=== PATIENT | male | born 1995 | race Caucasian/White ===

== ENCOUNTER 2019-09-12 11:40 | Emergency (ER) | payer OTHER, SELFPAY ==
--- NOTE | ~2019-09-12 | XR_ITS ---
XR toe 1st RT min 2V DATE: 09/12/2019 13:07 INDICATION: Injury. Possible metallic foreign body TECHNIQUE: 4 views COMPARISON: None FINDINGS: No fracture or dislocation, periosteal reaction or bone destruction, subcutaneous emphysema or radiopaque soft tissue foreign body is evident. The joint spaces are preserved. IMPRESSION: Negative Reviewed, dictated and finalized at location A. IMPRESSION: Negative
[2019-09-12 11:46] VITALS: BP 137/64; PULSE 92; RESP 20; TEMP 37.2; O2SAT 100
--- NOTE | 2019-09-12 12:41 | ED.LOWEXIN ---
HPI - Extremity Injury (Lower) General Chief Complaint: Extremity Injury, Lower <Mariah Bañuelos PA-C - Last Filed: 09/12/19 13:22> Stated Complaint: lt great toe injury/pain <Mariah Bañuelos PA-C - Last Filed: 09/12/19 13:22> Time Seen by Provider: 09/12/19 12:25 <Mariah Bañuelos PA-C - Last Filed: 09/12/19 13:22> Source: patient <ROBBIE Crane Last Filed: 09/12/19 13:22> Mode of arrival: ambulatory <ROBBIE Crane Last Filed: 09/12/19 13:22> Limitations: no limitations <Mariah Bañuelos PA-C - Last Filed: 09/12/19 13:22> History of Present Illness HPI Narrative: This is a 24 year old male that presents to the ER for right great toe injury sustained 3 days ago. Reports he was outside and he felt a piece of fence go under his right great toenail. Reports since he has had swelling and pain in the area. Also reports redness. Denies fever or drainage. <ROBBIE Crane Last Filed: 09/12/19 13:22> Related Data Home Medications: Home Medications Medication Instructions Recorded Confirmed omeprazole 40 mg PO DAILY 01/31/19 01/31/19 <Mariah Bañuelos PA-C - Last Filed: 09/12/19 13:22> Allergies/Adverse Reactions: Allergies Allergy/AdvReac Type Severity Reaction Status Date / Time No Known Allergies Allergy Unverified 09/12/19 12:47 <ROBBIE Crane Last Filed: 09/12/19 13:22> Review of Systems Review of Systems: Narrative: CONSTITUTIONAL: Denies fever SKIN: Reports redness <ROBBIE Crane Last Filed: 09/12/19 13:22> All systems reviewed & are unremarkable except as noted in HPI and below <ROBBIE Crane Last Filed: 09/12/19 13:22> PMFSH Past Medical History Medical History: Medical History (Updated 09/12/19 @ 13:19 by Mariah Bañuelos PA-C) History of anxiety <Mariah Bañuelos PA-C - Last Filed: 09/12/19 13:22> Surgical History Surgical History: Surgical History (Updated 01/31/19 @ 19:25 by Dana Soni) No history of previous surgery <Mariah Bañuelos PA-C - Last Filed: 09/12/19 13:22> Social History Social History: Social History (Updated 01/31/19 @ 19:26 by Dana Soni) Smoking status: Unknown if ever smoked <Mariah Bañuelos PA-C - Last Filed: 09/12/19 13:22> Exam Narrative: Exam Narrative: GENERAL: Well-appearing, well-nourished, and in no acute distress. HEAD: Normocephalic, atraumatic. EYES: EOMI. EXTREMITIES: Normal range of motion. Mild swelling and redness to the medial side of the nail SKIN: Warm, dry, no rash. NEURO: No focal deficits. Alert and oriented x3. PSYCH: Normal mood and affect <Mariah Bañuelos PA-C - Last Filed: 09/12/19 13:22> Course Vital Signs Vital signs: Vital Signs Temperature 99.0 F 09/12/19 11:46 Pulse Rate 92 09/12/19 11:46 Respiratory Rate 20 09/12/19 11:46 Blood Pressure 137/64 09/12/19 11:46 Pulse Oximetry 100 09/12/19 11:46 Temperature 99.0 F 09/12/19 11:46 Pulse Rate 45 L 09/12/19 14:07 Respiratory Rate 14 09/12/19 14:07 Blood Pressure 120/71 09/12/19 14:07 Pulse Oximetry 100 09/12/19 14:07 <Mariah Bañuelos PA-C - Last Filed: 09/12/19 13:22> Vital Signs Temperature 99.0 F 09/12/19 11:46 Pulse Rate 92 09/12/19 11:46 Respiratory Rate 20 09/12/19 11:46 Blood Pressure 137/64 09/12/19 11:46 Pulse Oximetry 100 09/12/19 11:46 Temperature 99.0 F 09/12/19 11:46 Pulse Rate 45 L 09/12/19 14:07 Respiratory Rate 14 09/12/19 14:07 Blood Pressure 120/71 09/12/19 14:07 Pulse Oximetry 100 09/12/19 14:07 <Elvia Pineda MD - Last Filed: 09/12/19 20:19> MDM - Extremity Injury (Lower) MDM Narrative Medical decision making narrative: Patient presents the emergency department for right great toe injury 3 days ago. Patient was updated on tetanus. He is afebrile and nontoxic-appearing. He has mild redness and swelling around
[2019-09-12] MEDS: KETOROLAC (*BKC) 60 MG/2 ML VIAL IM (12:51)
[2019-09-12] MEDS: TETANUS,DIPHTHERIA,AC PERTUSSIS ADULT (0.5 ML) BOOSTRIX IM (12:54)
[2019-09-12 14:07] VITALS: BP 120/71; PULSE 45; RESP 14; O2SAT 100
== END 2019-09-12 14:09 | disposition home or self-care (01) ==
PROVIDERS: Emergency Provider General Practice; PCP Nurse Practitioner Family
DX: L03.031 Cellulitis of right toe (principal); Z23 Encounter for immunization
CPT/HCPCS: 73660; 90471; 90715; 96372; 99283; J1885

== ENCOUNTER 2020-05-25 19:12 | Inpatient (IN) | payer OTHER, SELFPAY ==
[2020-05-25] VITALS (14 sets, daily range): BP systolic 106–142; BP diastolic 53–80; PULSE 70–84; RESP 4–17; TEMP 36.6; O2SAT 98–100
--- NOTE | ~2020-05-25 | CT_ITS ---
EXAMINATION: CT brain wo con DATE: 05/25/2020 22:36 INDICATION: Head injury. Drug overdose. TECHNIQUE: Computed tomography (CT) of the head was performed without intravenous contrast. The mA wa s adjusted according to patient size. Iterative reconstruction technique was employed. The dose-lengt h product was 605.33 mGy-cm. COMPARISON: Head CT 02/19/2018 FINDINGS: There is no acute ischemic infarct, intracranial hemorrhage, or abnormal mass lesion. The v entricles are normal in size. There is mucosal thickening in the paranasal sinuses. The orbits are no rmal. The mastoid air cells are normal. IMPRESSION: 1. Normal brain. Reviewed, dictated and finalized at location A. TRICAL VARIETY AGENT IMPRESSION: 1. Normal brain.
--- NOTE | ~2020-05-25 | XR_ITS ---
EXAMINATION: XR chest ET placement DATE: 05/25/2020 23:22 INDICATION: Intubation. TECHNIQUE: A single frontal view of the chest was obtained. COMPARISON: Chest CT 11/17/2015 FINDINGS: The chest demonstrates clear lungs without pneumonia, pleural effusion, or pneumothorax. Th e heart size is normal. The endotracheal tube tip is 5.1 cm above the taurus. IMPRESSION: 1. No acute cardiopulmonary disease. Reviewed, dictated and finalized at location A. RVISOR INSTANT POTATO PROCESSING
--- NOTE | ~2020-05-25 | XR_ITS ---
EXAMINATION: XR abdomen NG/feed tube insert DATE: 05/25/2020 23:21 INDICATION: Nasogastric tube placement. TECHNIQUE: A supine view of the abdomen was obtained. COMPARISON: None. FINDINGS: There are no dilated loops of bowel. The nasogastric tube tip is in the stomach. IMPRESSION: 1. Nasogastric tube tip in the stomach. Reviewed, dictated and finalized at location A. TRUCK DRIVER
--- NOTE | ~2020-05-25 | CT_ITS ---
EXAMINATION: CT cervical spine wo con DATE: 05/25/2020 22:36 INDICATION: Neck injury. TECHNIQUE: Computed tomography (CT) of the cervical spine was performed without intravenous contrast. Automated exposure control and iterative reconstruction technique were employed. The dose-length pro duct was 464.73 mGy-cm. COMPARISON: None FINDINGS: There is 4 degrees dextrocurvature of cervical spine. Vertebral body heights and interverte bral disc heights are normal. At C7-T1, there is mild bilateral facet joint osteoarthritis. No neural foraminal stenosis or central canal stenosis. IMPRESSION: 1. No fracture. Reviewed, dictated and finalized at location A. DING TANK TENDER HELPER IMPRESSION: 1. No fracture.
--- NOTE | ~2020-05-25 | XR_ITS ---
EXAMINATION: XR chest 1V portable DATE: 05/27/2020 05:23 INDICATION: Respiratory failure TECHNIQUE: frontal view of the chest was obtained. COMPARISON: Chest radiograph dated 05/25/2020 FINDINGS: Endotracheal tube tip 4.7 cm above the taurus. Nasogastric tube extends below the left hemidiaphragm with distal tip collimated off the study. Lungs are clear with no focal airspace opacities, pulmonary edema, pleural effusion or pneumothorax. The cardiomediastinal silhouette is normal. Visualized bones and soft tissues are unremarkable. IMPRESSION: 1. No acute cardiopulmonary disease. Reviewed, dictated and finalized at location A. CAR MAKE READY WORKER
[2020-05-25] MEDS: NALOXONE HCL INJ 2 MG/2 ML AMP (19:20)
--- NOTE | 2020-05-25 19:22 | ECG_ITS ---
Measurements Intervals [place] Rate: 77 P: 71 MA: 217 QRS: 68 QRSD: 98 T: 54 QT: 367 QTc: 417 Interpretive Statements SINUS RHYTHM WITH FIRST DEGREE AV BLOCK POSSIBLE LEFT ATRIAL ENLARGEMENT INCOMPLETE RIGHT BUNDLE BRANCH BLOCK ABNORMAL ECG Electronically Signed On 05-26-2020 6:50:18 AIRCRAFT LANDING GEAR INSPECTOR by Quan Ward D.O.
[2020-05-25] MEDS: diazePAM INJ (*CRX) 10 MG/2 ML SYRINGE ×2 (19:27→19:33)
[2020-05-25] MEDS: MIDAZOLAM HCL (*CRX) 2 MG/2 ML VIAL 4 MG (19:41)
--- NOTE | 2020-05-25 19:54 | ED.GENADULT ---
HPI - General Adult General Chief complaint: Altered Mental Status Stated complaint: unresp Time Seen by Provider: 05/25/20 19:53 Source: patient and EMS Mode of arrival: EMS Limitations: clinical condition History of Present Illness HPI narrative: Patient is 25 years old white male found on the floor at [facility] bathroom unresponsive. told us that patient had history of heroin abuse. 8 mg of Narcan were given prior to arrival without . Patient currently is unresponsive with loud snoring Related Data Home Medications Medication Instructions Recorded Confirmed omeprazole 40 mg PO DAILY 01/31/19 01/31/19 Allergies Allergy/AdvReac Type Severity Reaction Status Date / Time No Known Allergies Allergy Unverified 09/12/19 12:47 Review of Systems Review of Systems: ROS unobtainable: Yes unobtainable due to medical condition PMFSH Past Medical History Medical History History of anxiety Surgical History Surgical History No history of previous surgery Social History Social History Smoking status: Unknown if ever smoked Exam Narrative: Exam Narrative: General appearance: Well-developed, well-nourished, unresponsive, loud snoring Skin: Diaphoretic, warm Head: Normocephalic, nontraumatic Eyes: Clear conjunctiva ENT: Oropharynx normal Neck: Supple, nontender Chest and respiratory: Airway patent, no respiratory distress, no accessory muscle use Heart: Regular rate/rhythm Abdomen: Soft, nontender, no organomegaly, quiet bowel sounds Vascular: Normal peripheral pulses, normal capillary refill. Neurologic: Unresponsive to painful stimulation Course Course Emergency Course: Stable Patient had another 2 mg of Narcan in the emergency room without any response, patient received 22 mg of Romazicon every 15 seconds up to 1 mg without any response. Few minutes later patient started having seizure-like activity and was combative. 5 mg of Valium were given every 5 minutes x 4. Patient was still agitated and combative. For the safety of the staff and patient 4 mg was given with good results. Currently patient laying down comfortable with normal vital signs. Reevaluation(s) Reevaluation #1: Patient developed apnea at 6 breaths/min, UNresponsive to painful stimulation, orotracheal intubation started. Discussed with Dr. Alaniz Date: 05/25/20 Time: 23:39 Consultations Consultation #1: Dr. Alaniz, accepted admission Date: 05/26/20 Time: 00:03 Vital Signs Vital signs: Vital Signs Temperature 36.6 C 05/25/20 19:14 Pulse Rate 80 05/25/20 19:14 Respiratory Rate 15 05/25/20 19:14 Blood Pressure 142/75 H 05/25/20 19:14 Pulse Oximetry 100 05/25/20 19:14 Temperature 36.6 C 05/25/20 19:14 Pulse Rate 80 05/25/20 19:14 Respiratory Rate 15 05/25/20 19:14 Blood Pressure 142/75 H 05/25/20 19:14 Pulse Oximetry 100 05/25/20 19:14 Procedures Intubation Intubation #1: Intubation Date: 05/25/20 Intubation Time: 23:25 Time out performed: Yes (15 minutes) sedative: none paralytic: Succinylcholine Mg Given: 100 Laryngoscope: fiber optic video scope Assist Device Used: other (None) Tube Size (cm): 7.5 Method of Intubation: orotracheal Number of Attempts: 1 Tube Secured Location: lips Tube Placement Confirmation: visualized tube passing through cords, equal breath sounds bilaterally and no breath sounds over epigastrium Patient Tolerated Procedure: well Intubation Compli
[2020-05-25 20:22] LABS: Basophils Absolute Auto 0.1 K/mm3 (0.0-0.1); Basophils Percent Auto 0.5 % (0.2-1.2); Eosinophils Absolute Auto 0.1 K/mm3 (0-0.3); Eosinophils Percent Auto 1.3 % (0-4.4); Hematocrit 35.3 % (42.0-52.0); Hemoglobin 11.7 g/dL (14.0-18.0); Immature Granulocyte Absolute 0.02 K/mm3 (0.00-0.031); Immature Granulocyte Percent A 0.2 % (0-0.5); Lymphocytes Absolute Auto 3.05 K/mm3 (0.9-3.2); Mean Corpuscular HGB Conc 33.1 g/dl (32-36); Mean Corpuscular Volume 90.5 fl (80-100); Mean Platelet Volume 9.6 fl (7.4-10.4); Monocytes Absolute Auto 0.7 K/mm3 (0.1-0.6); Monocytes Percent Auto 7.4 % (2.6-8.5); Neutrophils Absolute Auto 5.6 K/mm3 (1.3-6.7); Neutrophils Percent Auto 58.6 % (45.5-73.1); Platelet Count Result 214 k/mm3 (150-375); Red Cell Distribution Width 12.3 % (11.5-14.5); White Blood Count 9.5 K/mm3 (4.5-10.0)
[2020-05-25] MEDS: LORazepam INJ (*CRX) 2 MG/ML VIAL (20:25)
[2020-05-25 20:26] LABS: Add Urine Microscopic? YES; Appearance Urine Clear (Clear); Bacteria Urine Trace /hpf; Bilirubin Urine Negative (Negative); Blood Urine 1+ (Negative); Color Urine Straw (Yellow); Glucose Urine UA Negative (Negative); Ketones Urine Negative (Negative); Leukocyte Esterase Ur Negative LEU/UL (Negative); Mucus Urine Rare /lpf; Nitrate Urine Negative (Negative); Protein Urine 2+ mg/dL (Negative); RBC Urine 0-2 /hpf (0-2); Urobilinogen Urine Negative mg/dL (<2.0); WBC Urine 0-3 /hpf
[2020-05-25 20:29] LABS: Alveolar/Arterial O2 Gradient 371.4 mmHg; Base Excess ABG -6.5 mEq/l (+/-2.0); Carboxyhemoglobin 0.3 % THb (0-2.0); Device NON-REBREATHER MASK; Fractional Inspired Oxygen 100 %; Methemoglobin ABG 0.3 %THb (0-1.5); Modified Allen's Test Unable to perform; Oxygen Content ABG 17.8 %vol (16.0-22.0); Oxygen Saturation ABG 99.7 % (95.0-100.0); Oxyhemoglobin 98.3 % THb (90.0-100.0); PCO2 ABG 32.7 mmHg (35.0-45.0); PO2 ABG 308.9 mmHg (80.0-100.0); PO2 FiO2 Ratio Arterial Blood 3.09 %; Reduced Hemoglobin 1.1 %THb (0-5.0); Site Drawn RIGHT RADIAL; Total Hemoglobin 12.3 g/dL (12.0-18.0); pH ABG 7.359 (7.350-7.450)
[2020-05-25 20:33] LABS: Acetaminophen < 10 ug/mL (10-30); Ethanol 54 mg/dL (<10); Salicylate < 1.0 mg/dL (2-20)
[2020-05-25 20:34] LABS: Alanine Aminotransferase 19 U/L (4-50); Albumin Level 4.1 g/dL (3.5-5.1); Alkaline Phosphatase 60 U/L (38-126); Anion Gap 10 mmol/L (8-16); Aspartate Amino Transferase 37 U/L (17-59); Bilirubin,Total 0.7 mg/dL (0.2-1.3); Blood Urea Nitrogen 15 mg/dL (9-20); Calcium 8.5 mg/dL (8.4-10.2); Carbon Dioxide 22 mmol/L (22-30); Chloride 109 mmol/L (98-107); Creatine Kinase 191 U/L (55-170); Estimated CRCL calculation 120 ml/min; Estimated Glomerular Filt Rate > 60; Glucose 119 mg/dL (75-110); Potassium 2.9 mmol/L (3.4-5.0); Sodium 141 mmol/L (137-145)
[2020-05-25 20:39] LABS: Amphetamine Screen Urine Negative (Negative); Barbiturate Screen Urine Negative (Negative); Benzodiazepines Screen Urine Positive (Negative); Cannabinoid Screen Urine Positive (Negative); Cocaine Screen Urine Negative (Negative); Methadone Screen Urine Negative (Negative); Opiate Screen Urine Negative (Negative); Phencyclidine Screen Urine Negative (Negative)
[2020-05-25] MEDS: RAPID SEQUENCE INTUBATION KIT 1 EACH (23:02)
--- NOTE | 2020-05-25 23:02 | PC.NURSE ---
100mg Succ 2302 Ns 1000 mg bolus 2300 7.7 ETT inserted via glidascope at 2303 verified by color change and auscultation 16 OG at 75 inserted verified by bedside xray at 2312
[2020-05-25] MEDS: SODIUM CHLORIDE 0.9% IV 1,000 ML 999 ML IV CONT ×2 (23:15→23:16)
--- NOTE | 2020-05-25 23:30 | PM.IMHP ---
H&P: HPI History of Present Illness Date/Time: 05/25/20 23:30 Chief Complaint: Suspected overdose. Narrative: This is a 25-year-old male with a longstanding history of drug abuse who presented to the emergency department earlier today via EMS from [facility] for evaluation after a suspected overdose. He is intubated at the time my evaluation and cannot provide any history and as such all of the following is obtained via a review of his electronic medical records as well as discussions with his who is at bedside. Not long prior to arrival the patient his and her daughter went shopping at [facility], and he told his that he had to go to the bathroom. About 20 minutes later she saw paramedics racing to the bathroom and she was told that her was found unresponsive with snoring respirations in the bathroom by an employee. The patient received a total of 8 milligrams of Narcan en route to the hospital without response. He was then given Romazicon without response however a few minutes later he began having seizure activity and was combative. Valium was given in attempts to calm the patient with good response. Upon re-evaluation he was hypopneic, unresponsive to painful stimuli, and he was intubated. At the time my evaluation he is unresponsive and intubated. The patient's denies that he is had any recent cold or flu symptoms. To her knowledge he has been clean from drugs for quite some time however he apparently had a bad interaction with his mom recently quit which seems to have been the trigger for him to start using drugs again (it is my understanding that fentanyl was found on his person). Review of Systems Review of Systems: Narrative: Unable to be obtained given current clinical condition as detailed above. [facility] Past Medical History Medical History (Updated 05/26/20 @ 03:44 by Sharita Lindsey PA-C) Anxiety Valera esophagus Drug abuse Longstanding history of drug abuse since his teenage years including THC, bath salts, methamphetamines, marijuana, and fentanyl. Surgical History Surgical History No history of previous surgery Family History Family History (Updated 05/26/20 @ 03:42 by Sharita Lindsey PA-C) Other Alcoholism Social History Social History (Updated 02/24/21 @ 03:44 by Sharita Lindsey PA-C) Social History: The patient lives in [place] with his and her 8-year-old daughter. 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 He uses electronic cigarettes. Drinks perhaps 21 alcoholic beverages a week, according to his . Longstanding history of drug abuse including THC, heroin, methamphetamines, bath salts, and fentanyl. Smoking status: Unknown if ever smoked Tobacco type: e-cigarettes/vaping Alcohol intake: current Drinks per week: 21 Substance use: current Substance use type: marijuana, heroin and opiates Spiritual care concerns: No Meds Home Medications and Allergies Home Medications Medication Instructions Recorded Confirmed Type No Home Medications 05/26/20 05/26/20 History Allergies Allergy/AdvReac Type Severity Reaction Status Date / Time No Known Allergies Allergy Unverified 09/12/19 12:47 Vital Signs Vital Signs - 24 hr 05/25/20 19:14 05/25/20 21:02 05/25/20 21:17 Temperature 97.9 F Pulse Rate 80 84 79 Respiratory Rate 15 8 L 7 L Blood Pressure 142/75 H 109/60 108/59 L Pulse Oximetry 100 99 100 05/25/20 21:32 05/25/20 21:47 05/25/20 22:01 Temperature Pulse Rate 78 76 78 Respiratory Rate 6 L 5 L 5 L Blood Pressure 106/67 112/54 L 110/57 L Pulse Oximetry 100 100 98 05/25/20 22:17 05/25/20 22:39 05/25/20 22:46 Temperature Pulse Rate 78 73 73 Respiratory Rate 4 L 4 L Blood Pressure 113/53 L 113/55 L 114/60 Pulse Oximetry 100 100 100 05/25/20 23:00 05/25/20 23:02 05/25/20 23:16 Temperature Pulse Rate 72 72
[2020-05-26] VITALS (33 sets, daily range): BP systolic 93–137; BP diastolic 39–82; PULSE 43–70; RESP 16–20; TEMP 35.8–36.9; O2SAT 99–100; BMI 23.0; BMI 22.6
[2020-05-26] MEDS: PROPOFOL IV EMULSION 200 MG/20 ML VIAL 40 MG IV PUSH (01:08)
[2020-05-26] MEDS: PROPOFOL IV EMULSION 100 ML 2.66 MG IV CONT (01:25)
[2020-05-26] MEDS: SODIUM CHLORIDE 0.9% IV 1,000 ML 100 ML IV CONT ×2 (01:45→11:57)
--- NOTE | 2020-05-26 03:54 | PC.NURSE ---
This patient, Mark Brown, was admitted to Intensive Care Unit-11. Patient/family oriented to hospital policies and general routines including ID bracelet, bed and alarms, visiting hours, pain management, procedures, bathroom and other care routines, personal items, smoking policy, room service/diet, and visiting hours. Information on how to activate the Rapid Response Team has been discussed. Patient/Family are encouraged to report perceived risks to care and to ask questions if they do not understand what they are told or what they should do.
[2020-05-26 05:21] LABS: Base Excess ABG -3.1 mEq/l (+/-2.0); HCO3 ABG 21.1 mEq/l (22.0-26.0); Oxygen Saturation ABG 98.6 % (95.0-100.0); PO2 ABG 127.3 mmHg (80.0-100.0); Total Hemoglobin 13.2 g/dL (12.0-18.0); pH ABG 7.398 (7.350-7.450)
[2020-05-26 05:22] LABS: Alveolar/Arterial O2 Gradient 45.5 mmHg; Carboxyhemoglobin 0.3 % THb (0-2.0); Oxygen Content ABG 18.2 %vol (16.0-22.0); Oxyhemoglobin 97.2 % THb (90.0-100.0)
[2020-05-26 05:23] LABS: Device VENTILATOR; Fractional Inspired Oxygen 30 %; Methemoglobin ABG 0.3 %THb (0-1.5); Modified Allen's Test Pass; Site Drawn RIGHT RADIAL
[2020-05-26 06:27] LABS: Arterial Blood Gas PEEP 5 cmH2O; Arterial Blood Gas Tidal Volume 500 ml; Arterial Blood Gas Vent Mode CMV; Arterial Blood Gas Ventilator rate 16 /MIN
[2020-05-26 06:51] LABS: Basophils Percent Auto 0.3 % (0.2-1.2); Eosinophils Percent Auto 0.3 % (0-4.4); Hemoglobin 12.4 g/dL (14.0-18.0); Immature Granulocyte Absolute 0.04 K/mm3 (0.00-0.031); Immature Granulocyte Percent A 0.3 % (0-0.5); Lymphocytes Absolute Auto 3.82 K/mm3 (0.9-3.2); Mean Corpuscular HGB Conc 32.6 g/dl (32-36); Mean Platelet Volume 9.8 fl (7.4-10.4); Monocytes Absolute Auto 0.9 K/mm3 (0.1-0.6); Monocytes Percent Auto 7.3 % (2.6-8.5); Neutrophils Absolute Auto 7.1 K/mm3 (1.3-6.7); Neutrophils Percent Auto 59.8 % (45.5-73.1); Platelet Count Result 189 k/mm3 (150-375); Red Blood Count 4.13 M/mm3 (4.6-6.20); Red Cell Distribution Width 12.5 % (11.5-14.5); White Blood Count 11.9 K/mm3 (4.5-10.0)
[2020-05-26 07:08] LABS: Alanine Aminotransferase 18 U/L (4-50); Albumin Level 3.9 g/dL (3.5-5.1); Alkaline Phosphatase 66 U/L (38-126); Anion Gap 4 mmol/L (8-16); Aspartate Amino Transferase 36 U/L (17-59); Bilirubin,Total 1.2 mg/dL (0.2-1.3); Blood Urea Nitrogen 13 mg/dL (9-20); Calcium 8.5 mg/dL (8.4-10.2); Carbon Dioxide 26 mmol/L (22-30); Chloride 110 mmol/L (98-107); Creatine Kinase 550 U/L (55-170); Estimated CRCL calculation 144 ml/min; Estimated Glomerular Filt Rate > 60; Glucose 73 mg/dL (75-110); Magnesium 2.1 mg/dL (1.6-2.3); Sodium 140 mmol/L (137-145)
[2020-05-26] MEDS: SODIUM CHLORIDE 0.9% IV 1,000 ML 999 ML IV CONT (08:31)
[2020-05-26] MEDS: PROPOFOL IV EMULSION 100 ML 7.99 MG IV CONT (08:32)
--- NOTE | 2020-05-26 09:06 | WPDCNINT ---
Assessment and Plan Assessment and plan (1) Acute drug overdose: Qualifiers: Encounter type: initial encounter Injury intent: undetermined intent Qualified Code(s): T50.904A - Poisoning by unspecified drugs, medicaments and biological substances, undetermined, initial encounter Code(s): T50.901A - Poisoning by unspecified drugs, medicaments and biological substances, accidental (unintentional), initial encounter Status: Acute Assessment and Plan: Patient was found unresponsive with snoring respirations [facility] bathroom, presumably fentanyl and benzodiazepines of found on this person. -likely over does, trigger was was a bad interaction with his mother, this was according to his -patient was adequately fluid-resuscitated -patient was given Narcan without any improvement, also given Romazicon the ER after which he exhibited seizure activity and was given a total of 20 mg of Valium IV. Patient also received Versed. His respirations 4-6 breaths per minute, patient was electively intubated to protect his airway. -continue maintenance IV fluids, will give additional IV fluid bolus given his CK levels are trending upwards (2) Acute respiratory failure: Qualifiers: Respiratory failure complication: unspecified whether with hypoxia or hypercapnia Qualified Code(s): J96.00 - Acute respiratory failure, unspecified whether with hypoxia or hypercapnia Code(s): J96.00 - Acute respiratory failure, unspecified whether with hypoxia or hypercapnia Status: Acute Assessment and Plan: Acute respiratory failure due to seizure activity, decreased respiratory rate, combativeness/agitation, airway protection and for adequate oxygenation and ventilation -patient remains on CMV mode of ventilation, 30% FiO2, peep of 5 -ABGs and chest x-ray reviewed -on propofol infusion for sedation (3) Seizure: Code(s): R56.9 - Unspecified convulsions Status: Acute Assessment and Plan: Seizure activity most likely related to Romazicon -no additional seizure activities noted overnight, -patient on propofol infusion (4) Hypokalemia: Code(s): E87.6 - Hypokalemia Status: Acute Assessment and Plan: Resolved (5) DVT prophylaxis: Code(s): Z29.9 - Encounter for prophylactic measures, unspecified Status: Acute Assessment and Plan: DVT prophylaxis: Lovenox Stress ulcer prophylaxis: Protonix Additional Plan Discussed with and updated her with patient's condition and plan of care. Code status: Full code Critical care time spent:43 minutes Due to a high probability of clinically significant, life threatening deterioration, the patient required my highest level of preparedness to intervene emergently and I personally spent this critical care time directly and personally managing the patient. This critical care time included obtaining a history; examining the patient; pulse oximetry; ordering and review of studies; arranging urgent treatment with development of a management plan; evaluation of patient's response to treatment; frequent reassessment; and discussions with other providers. It was exclusive of separately billable procedures and treating other patients and teaching time. Please see Assessment and Plan section and the rest of the note for further information on patient assessment and treatment Wire Products Inspector Consult Note Consult date: 05/26/20 Time Seen: 06:57 Reason for consult: Suspected overdose, acute respiratory failure, agitation, encephalopathy HPI: Mark Brown is a 25 year old male significant past medical history of anxiety, Valera's esophagus, longstanding history of drug abuse with THC, bouts ulcer, methamphetamines, marijuana, fentanyl presented the ED via EMS after being found unresponsive on the floor of the bathroom at a [employer] store. Patient was given Narcan 8 mg EN route to the hospital without any improvement in mental statu
--- NOTE | 2020-05-26 10:56 | PCDIET ---
Recommend Jevity 1.5 at 60mL/hr x 22 hours/day for 1980kcal, 84g protein and 1003mL free water. Suggest 30mL water flush every 4 hours. Verbal order obtained from Dr. Alaniz.
[2020-05-26] MEDS: MIDAZOLAM HCL (*CRX) 2 MG/2 ML VIAL IV PUSH (11:43)
[2020-05-26] MEDS: MIDAZOLAM 100MG/NS 100ML(*CRX) 100 MG/100 ML BAG IV CONT (11:44)
[2020-05-26] MEDS: PANTOPRAZOLE SODIUM IV 40 MG VIAL IV PUSH (11:50)
[2020-05-26] MEDS: LORazepam INJ (*CRX) 2 MG/ML VIAL IV PUSH (14:10)
[2020-05-26] MEDS: MIDAZOLAM HCL (*CRX) 2 MG/2 ML VIAL (14:53)
[2020-05-26] MEDS: LORazepam INJ (*CRX) 2 MG/ML VIAL (14:53)
[2020-05-26] MEDS: PROPOFOL IV EMULSION 100 ML 13.32 MG IV CONT (17:26)
[2020-05-26] MEDS: SODIUM CHLORIDE 0.9% IV 1,000 ML 150 ML IV CONT (21:34)
[2020-05-27] VITALS (36 sets, daily range): BP systolic 93–157; BP diastolic 47–91; PULSE 46–120; RESP 16–30; TEMP 36.3–36.9; O2SAT 90–100
[2020-05-27] MEDS: PROPOFOL IV EMULSION 100 ML 13.32 MG IV CONT ×2 (00:08→06:41)
[2020-05-27 04:26] LABS: Alveolar/Arterial O2 Gradient 28.1 mmHg; Base Excess ABG -2.3 mEq/l (+/-2.0); Carboxyhemoglobin 0.3 % THb (0-2.0); Fractional Inspired Oxygen 30 %; HCO3 ABG 21.3 mEq/l (22.0-26.0); Methemoglobin ABG 0.4 %THb (0-1.5); Oxygen Content ABG 18.2 %vol (16.0-22.0); Oxyhemoglobin 97.5 % THb (90.0-100.0); PCO2 ABG 33.2 mmHg (35.0-45.0); PO2 ABG 146.8 mmHg (80.0-100.0); PO2 FiO2 Ratio Arterial Blood 4.89 %; Reduced Hemoglobin 1.8 %THb (0-5.0); Total Hemoglobin 13.1 g/dL (12.0-18.0); pH ABG 7.426 (7.350-7.450)
[2020-05-27 04:27] LABS: Arterial Blood Gas PEEP 5 cmH2O; Arterial Blood Gas Vent Mode CMV; Arterial Blood Gas Ventilator rate 16 /MIN; Device VENTILATOR; Modified Allen's Test Unable to perform; Site Drawn RIGHT RADIAL
[2020-05-27 04:28] LABS: Arterial Blood Gas Tidal Volume 500 ml
[2020-05-27 04:30] LABS: Basophils Absolute Auto 0.1 K/mm3 (0.0-0.1); Basophils Percent Auto 0.6 % (0.2-1.2); Eosinophils Absolute Auto 0.3 K/mm3 (0-0.3); Eosinophils Percent Auto 2.8 % (0-4.4); Hemoglobin 11.9 g/dL (14.0-18.0); Immature Granulocyte Absolute 0.03 K/mm3 (0.00-0.031); Immature Granulocyte Percent A 0.3 % (0-0.5); Lymphocytes Absolute Auto 2.63 K/mm3 (0.9-3.2); Lymphocytes Percent Auto 29.3 % (18.3-44.2); Mean Corpuscular Hemoglobin 30.4 pg (26-34); Mean Corpuscular Volume 89.5 fl (80-100); Mean Platelet Volume 9.1 fl (7.4-10.4); Monocytes Absolute Auto 0.7 K/mm3 (0.1-0.6); Monocytes Percent Auto 8.1 % (2.6-8.5); Neutrophils Absolute Auto 5.3 K/mm3 (1.3-6.7); Neutrophils Percent Auto 58.9 % (45.5-73.1); Platelet Count Result 169 k/mm3 (150-375); Red Blood Count 3.91 M/mm3 (4.6-6.20); Red Cell Distribution Width 12.6 % (11.5-14.5)
[2020-05-27 04:49] LABS: Lactic Acid Reflex 0.5 mmol/L (0.7-2.1)
[2020-05-27 04:52] LABS: Alanine Aminotransferase 15 U/L (4-50); Alkaline Phosphatase 53 U/L (38-126); Anion Gap 4 mmol/L (8-16); Aspartate Amino Transferase 40 U/L (17-59); Bilirubin,Total 1.3 mg/dL (0.2-1.3); Blood Urea Nitrogen 13 mg/dL (9-20); Calcium 7.9 mg/dL (8.4-10.2); Carbon Dioxide 21 mmol/L (22-30); Chloride 114 mmol/L (98-107); Estimated CRCL calculation 144 ml/min; Estimated Glomerular Filt Rate > 60; Glucose 92 mg/dL (75-110); Phosphorus 3.8 mg/dL (2.5-4.5); Potassium 3.5 mmol/L (3.4-5.0); Sodium 139 mmol/L (137-145)
[2020-05-27] MEDS: SODIUM CHLORIDE 0.9% IV 1,000 ML 150 ML IV CONT (06:40)
[2020-05-27] MEDS: MIDAZOLAM 100MG/NS 100ML(*CRX) 100 MG/100 ML BAG 6 MG IV CONT (07:47)
[2020-05-27] MEDS: PANTOPRAZOLE SODIUM IV 40 MG VIAL IV PUSH (07:50)
[2020-05-27] MEDS: ENOXAPARIN 40 MG/0.4 ML SYRINGE SUB-Q (07:51)
[2020-05-27] MEDS: dexmedeTOMIDine 400 MCG/100 ML 400 MCG/100 ML BAG 15.56 MCG IV CONT (09:31)
[2020-05-27] MEDS: POTASSIUM CHLORIDE 20 MEQ PACKET (FOR LIQUID) 40 MEQ FEED TUBE (10:14)
[2020-05-27] MEDS: PROPOFOL IV EMULSION 100 ML 15.98 MG IV CONT (10:51)
--- NOTE | 2020-05-27 11:04 | PCDIET ---
ICU Rounding Note: Patient tolerating Jevity 1.5 at 60mL/hr goal rate with 30mL water flush every 4 hours. MD plan to initiate Precedex and taper Propofol with possible extubation. Last recorded weight is 88.9kg which is increased from last review. +I/O. Bowel Motility: No documented BM as of yet. Labs Reviewed: Hgb (11.9), Hct (35.0), Alb (3.0), Cl (114), Dima Ca (8.7) Meds Noted: Precedex, Protonix, Propofol (current rate of 15.98mL/hr provides 422kcal per day), KCl, NS at 75mL/hr Additional Notes: No documented pressure sores. If unable to wean Propofol over next 24 hours, will likely recommend decreasing tube feeding rate slightly. Following daily in ICU rounds. Assessing/reassessing every Sunday/Sunday.
--- NOTE | 2020-05-27 12:16 | WPDINTPN ---
Progress Note: A&P Assessment and Plan (1) Acute drug overdose: Qualifiers: Encounter type: initial encounter Injury intent: undetermined intent Qualified Code(s): T50.904A - Poisoning by unspecified drugs, medicaments and biological substances, undetermined, initial encounter Code(s): T50.901A - Poisoning by unspecified drugs, medicaments and biological substances, accidental (unintentional), initial encounter Status: Acute Assessment and Plan: Patient was found unresponsive with snoring respirations [facility] bathroom, presumably fentanyl and benzodiazepines of found on this person. -likely over does, trigger was was a bad interaction with his mother, this was according to his -patient was adequately fluid-resuscitated -patient was given Narcan without any improvement, also given Romazicon the ER after which he exhibited seizure activity and was given a total of 20 mg of Valium IV. Patient also received Versed. His respirations 4-6 breaths per minute, patient was electively intubated to protect his airway. -will decrease maintenance IV fluids (2) Acute respiratory failure: Qualifiers: Respiratory failure complication: unspecified whether with hypoxia or hypercapnia Qualified Code(s): J96.00 - Acute respiratory failure, unspecified whether with hypoxia or hypercapnia Code(s): J96.00 - Acute respiratory failure, unspecified whether with hypoxia or hypercapnia Status: Acute Assessment and Plan: Acute respiratory failure due to seizure activity, decreased respiratory rate, combativeness/agitation, airway protection and for adequate oxygenation and ventilation -patient remains on CMV mode of ventilation, 30% FiO2, peep of 5 -ABGs and chest x-ray reviewed -started patient on Precedex infusion, will wean and discontinue propofol and Versed infusion. -once he is off all sedation except Precedex infusion will place him on SBT and evaluate for extubation (3) Seizure: Code(s): R56.9 - Unspecified convulsions Status: Acute Assessment and Plan: Seizure activity most likely related to Romazicon -no additional seizure activities noted since admission -continue to monitor, on p.r.n. Ativan (4) Hypokalemia: Code(s): E87.6 - Hypokalemia Status: Acute Assessment and Plan: Will give additional potassium replacement today (5) DVT prophylaxis: Code(s): Z29.9 - Encounter for prophylactic measures, unspecified Status: Acute Assessment and Plan: DVT prophylaxis: Lovenox Stress ulcer prophylaxis: Protonix Additional Plan Discussed with and his father and updated her with patient's condition and plan of care. They are aware that we will be trying to extubated today Code status: Full code Critical care time spent: 33 minutes Due to a high probability of clinically significant, life threatening deterioration, the patient required my highest level of preparedness to intervene emergently and I personally spent this critical care time directly and personally managing the patient. This critical care time included obtaining a history; examining the patient; pulse oximetry; ordering and review of studies; arranging urgent treatment with development of a management plan; evaluation of patient's response to treatment; frequent reassessment; and discussions with other providers. It was exclusive of separately billable procedures and treating other patients and teaching time. Please see Assessment and Plan section and the rest of the note for further information on patient assessment and treatment Subjective Date/time seen: 05/27/20 12:16 Interval history: Reason for consult: Suspected overdose, acute respiratory failure, agitation, encephalopathy 05/27/2020: Patient seen and examined in the ICU, remains on Versed infusion and propofol, intermittently wakes up and gets agitated. Have switched him to Precedex infusion. Wean propof
[2020-05-27] MEDS: HALOPERIDOL LACTATE 5 MG/ML VIAL ×2 (12:35→12:39)
[2020-05-27] MEDS: dexmedeTOMIDine 400 MCG/100 ML 400 MCG/100 ML BAG 33.34 MCG IV CONT ×4 (13:33→22:46)
[2020-05-27] MEDS: LORazepam INJ (*CRX) 2 MG/ML VIAL IV PUSH ×2 (13:47→23:57)
[2020-05-27] MEDS: OLANZapine 10 MG INJ VIAL (13:50)
--- NOTE | 2020-05-27 14:01 | PM.EVENT ---
Event Note Event Note Event Note: Patient was successfully extubated today. Post extubation patient has been very agitated, confused and combative, -on Precedex infusion 1.5 mcg -patient received Haldol 5 mg IV x2 -also received Ativan 2 mg IV x1. -patient does not know why he is in the hospital and does not remember is continuously since he was to go home. Neyda is at bedside and this also tried to make him understand but due to his confusion and encephalopathy he is just agitated and combative. -patient was restrained with soft restraints in all 4 extremities as he is at risk to harm himself as well as the staff.
[2020-05-27] MEDS: SODIUM CHLORIDE 0.9% IV 1,000 ML 75 ML IV CONT (16:18)
--- NOTE | 2020-05-27 23:51 | PC.NURSE ---
Pt awake and pulling at restraints stating that this RN is going to make him lose his family and that he is leaving. Pt not alert & oriented at this time.
[2020-05-28] VITALS (12 sets, daily range): BP systolic 124–143; BP diastolic 76–102; PULSE 64–96; RESP 14–28; TEMP 36–36.5; O2SAT 93–100
[2020-05-28] MEDS: OLANZapine 10 MG INJ VIAL IM (00:23)
--- NOTE | 2020-05-28 00:44 | PC.NURSE ---
This RN at bedside. Pt pulling at restraints and was able to remove right wrist restraint ripping it in the process. Pt fighting this RN and Beverley HOU who is also at bedside. Pavel gasca called.
[2020-05-28] MEDS: dexmedeTOMIDine 400 MCG/100 ML 400 MCG/100 ML BAG 33.34 MCG IV CONT ×4 (01:46→10:33)
[2020-05-28] MEDS: LORazepam INJ (*CRX) 2 MG/ML VIAL IV PUSH ×2 (03:11→05:11)
[2020-05-28] MEDS: SODIUM CHLORIDE 0.9% IV 1,000 ML 75 ML IV CONT (05:06)
--- NOTE | 2020-05-28 05:55 | PM.EVENT ---
Event Note Event Note Event Note: CODE PURPLE NOTE Called by nursing staff to evaluate this 25 year old male who is being treated for drug overdose, altered mental status, and respiratory failure who was just extubated yesterday and treated with precedex, ativan, haldol and zyprexa for his acute agitation. Tonight the patient continues to be combative and is in soft restraints but continued to tear them off. I gave the patient another dose of zyprex and he continues to be on precedex. CODE RENE was called overhead as the patient became agitated despite the medications he is on and once again ripped off his soft restraints. At this time I decided to put the patient into hard restraints. We will continue to monitor closely while he is in hard restraints as he may need to be reintubated for airway protection.
[2020-05-28] MEDS: fentaNYL CITRATE INJ (*CRX) 100 MCG/2 ML VIAL 25 MCG IV PUSH (08:25)
[2020-05-28] MEDS: ENOXAPARIN 40 MG/0.4 ML SYRINGE SUB-Q (08:28)
[2020-05-28] MEDS: PANTOPRAZOLE SODIUM IV 40 MG VIAL IV PUSH (08:28)
--- NOTE | 2020-05-28 10:00 | PC.NURSE ---
Patient verbalized understanding that he would be released to go home but would have to stay in the hospital until his medication wore off. at bedside.
[2020-05-28] MEDS: clonazePAM (*CRX) 0.5 MG TABLET 1 MG PO (10:33)
--- NOTE | 2020-05-28 11:45 | PC.NURSE ---
Dr. Alaniz notified patient patient left AMA at 11:15. IVs discontinued prior to leaving.
--- NOTE | 2020-05-28 11:49 | PM.IMPN ---
Progress Note: A&P Assessment and Plan (1) Acute drug overdose: Qualifiers: Encounter type: initial encounter Injury intent: undetermined intent Qualified Code(s): T50.904A - Poisoning by unspecified drugs, medicaments and biological substances, undetermined, initial encounter Code(s): T50.901A - Poisoning by unspecified drugs, medicaments and biological substances, accidental (unintentional), initial encounter Status: Acute Assessment and Plan: Will continue to monitor, patient is more awake and alert (2) Acute respiratory failure: Qualifiers: Respiratory failure complication: unspecified whether with hypoxia or hypercapnia Qualified Code(s): J96.00 - Acute respiratory failure, unspecified whether with hypoxia or hypercapnia Code(s): J96.00 - Acute respiratory failure, unspecified whether with hypoxia or hypercapnia Status: Acute Assessment and Plan: Patient is more awake and alert now breathing better. (3) Seizure: Code(s): R56.9 - Unspecified convulsions Status: Acute Assessment and Plan: No seizure activity noted from the last 24 hours. (4) Hypokalemia: Code(s): E87.6 - Hypokalemia Status: Acute Assessment and Plan: Replace and monitor (5) Polysubstance abuse: Code(s): F19.10 - Other psychoactive substance abuse, uncomplicated Status: Acute Assessment and Plan: Referred to outpatient rehab. Additional Plan Will continue to monitor. Referred to outpatient rehab upon discharge Subjective Date/time seen: 05/28/20 11:49 Interval history: Patient was seen during my rounds today. Patient is more awake and alert. No shortness of breath or chest pain. Mood stable. Review of Systems Review of Systems: All systems reviewed & are unremarkable except as noted in HPI and below (the history and physical) Exam Narrative: Exam Narrative: General: Agitated HEENT: Normocephalic, atraumatic. PERRL Neck: Supple. No JVD. Respiratory: Air entry good no additional sounds. Cardiovascular: Regular rate and rhythm with S1-S2. No murmur, rub, or gallop. Gastrointestinal: Abdomen is soft, nontender, and nondistended with positive bowel sounds. Skin: Warm and dry. Multiple tattoos. Abrasions on right miller from a chain link fence that he was installing this week according to the . Extremities: No cyanosis, clubbing, or edema. Radial and pedal pulses intact. Neurological: Alert and moves extremities Psychiatric: Agitated Objective Data Vital Signs Vital Signs: Vital Signs - 24 hr 05/27/20 12:00 05/27/20 12:30 05/27/20 12:58 Temperature 36.8 C Pulse Rate 58 L 90 68 Respiratory Rate 16 20 20 Blood Pressure 114/73 Pulse Oximetry 99 100 05/27/20 13:33 05/27/20 14:00 05/27/20 15:37 Temperature Pulse Rate 87 108 H Respiratory Rate 20 28 H Blood Pressure 149/71 H Pulse Oximetry 95 97 05/27/20 16:00 05/27/20 16:19 05/27/20 18:00 Temperature 36.3 C L Pulse Rate 67 74 62 Respiratory Rate 16 16 18 Blood Pressure 110/63 123/90 Pulse Oximetry 93 92 05/27/20 18:48 05/27/20 19:49 05/27/20 20:00 Temperature 36.5 C Pulse Rate 65 69 Respiratory Rate 19 19 Blood Pressure 137/91 H Pulse Oximetry 92 97 05/27/20 22:00 05/27/20 22:46 05/28/20 00:00 Temperature Pulse Rate 63 63 85 Respiratory Rate 19 19 Blood Pressure 114/69 Pulse Oximetry 90 93 05/28/20 00:25 05/28/20 01:46 05/28/20 02:00 Temperature 36.5 C Pulse Rate 71 77 88 Respiratory Rate 25 H 24 H 23 H Blood Pressure 138/93 H 132/102 H Pulse Oximetry 94 100 05/28/20 04:00 05/28/20 04:46 05/28/20 06:00 Temperature Pulse Rate 71 74 72 Respiratory Rate 23 H 20 21 H Blood Pressure 138/85 124/76 Pulse Oximetry 100 100 05/28/20 07:31 05/28/20 08:00 05/28/20 10:00 Temperature 36.0 C L Pulse Rate 68 76 77 Respiratory Rate 19 14 20 Blood Pressure 134/83 143/85 H Pulse
--- NOTE | 2020-05-28 14:14 | WPDINTPN ---
Progress Note: A&P Assessment and Plan (1) Acute drug overdose: Qualifiers: Encounter type: initial encounter Injury intent: undetermined intent Qualified Code(s): T50.904A - Poisoning by unspecified drugs, medicaments and biological substances, undetermined, initial encounter Code(s): T50.901A - Poisoning by unspecified drugs, medicaments and biological substances, accidental (unintentional), initial encounter Status: Acute Assessment and Plan: Patient was found unresponsive with snoring respirations [facility] bathroom, presumably fentanyl and benzodiazepines of found on this person. -likely over does, trigger was was a bad interaction with his mother, this was according to his -patient has been on Precedex overnight, also was a code purple requiring Zyprexa and p.r.n. Ativan. -patient is in 4 point hard restraints, which were removed. Was a restraints were removed patient wanted to sign out AMA. His wheeled him out of the hospital (2) Acute respiratory failure: Qualifiers: Respiratory failure complication: unspecified whether with hypoxia or hypercapnia Qualified Code(s): J96.00 - Acute respiratory failure, unspecified whether with hypoxia or hypercapnia Code(s): J96.00 - Acute respiratory failure, unspecified whether with hypoxia or hypercapnia Status: Acute Assessment and Plan: Patient was extubated successfully on 05/27/2020 -on room air with good O2 sats (3) Seizure: Code(s): R56.9 - Unspecified convulsions Status: Acute Assessment and Plan: Seizure activity most likely related to Romazicon -no additional seizure activities noted since admission -continue to monitor, on p.r.n. Ativan (4) DVT prophylaxis: Code(s): Z29.9 - Encounter for prophylactic measures, unspecified Status: Acute Assessment and Plan: DVT prophylaxis: Lovenox Stress ulcer prophylaxis: Protonix Additional Plan Discussed with and updated her with patient's condition and plan of care. They are aware that we will be trying to extubated today Code status: Full code Critical care time spent: 33 minutes Patient signed out against medical advice ( AMA) Due to a high probability of clinically significant, life threatening deterioration, the patient required my highest level of preparedness to intervene emergently and I personally spent this critical care time directly and personally managing the patient. This critical care time included obtaining a history; examining the patient; pulse oximetry; ordering and review of studies; arranging urgent treatment with development of a management plan; evaluation of patient's response to treatment; frequent reassessment; and discussions with other providers. It was exclusive of separately billable procedures and treating other patients and teaching time. Please see Assessment and Plan section and the rest of the note for further information on patient assessment and treatment Subjective Date/time seen: 05/28/20 14:14 Interval history: Reason for consult: Suspected overdose, acute respiratory failure, agitation, encephalopathy 05/28/2020: Patient seen examined the ICU. He was a code purple overnight and was put and hard 4 point restraints. Remains on Precedex infusion 1.5 mcg. She has been on Ativan p.r.n. and also receive Zyprexa overnight. This morning patient is more calm and wanted the restraints to be off. Once the restraints were off patient wanted to sign of AMA. was at bedside who wheeled the patient out of the hospital. Patient has been hemodynamically stable, good O2 sats and urine output Review of Systems Review of Systems: All systems reviewed & are unremarkable except as noted in HPI and below Exam Const: General: comfortable and no acute distress Eyes: Sclera: sclerae normal Pupils: Equal, round and reactive pupils present Neck: Neck: supple Resp: Effort & Inspecti
--- NOTE | 2020-05-28 15:23 | PM.DS ---
DS: Admitting Diagnosis Admitting Diagnosis Admitting Diagnosis: Acute drug overdose. DS: Discharge Diagnosis Discharge Diagnosis (1) Acute drug overdose: Qualifiers: Encounter type: initial encounter Injury intent: undetermined intent Qualified Code(s): T50.904A - Poisoning by unspecified drugs, medicaments and biological substances, undetermined, initial encounter Code(s): T50.901A - Poisoning by unspecified drugs, medicaments and biological substances, accidental (unintentional), initial encounter Status: Acute Assessment and Plan: Will continue to monitor, patient is more awake and alert (2) Acute respiratory failure: Qualifiers: Respiratory failure complication: unspecified whether with hypoxia or hypercapnia Qualified Code(s): J96.00 - Acute respiratory failure, unspecified whether with hypoxia or hypercapnia Code(s): J96.00 - Acute respiratory failure, unspecified whether with hypoxia or hypercapnia Status: Acute Assessment and Plan: Patient is more awake and alert now breathing better. (3) Seizure: Code(s): R56.9 - Unspecified convulsions Status: Acute Assessment and Plan: No seizure activity noted from the last 24 hours. (4) Hypokalemia: Code(s): E87.6 - Hypokalemia Status: Acute Assessment and Plan: Replace and monitor (5) Polysubstance abuse: Code(s): F19.10 - Other psychoactive substance abuse, uncomplicated Status: Acute Assessment and Plan: Referred to outpatient rehab. DS: Summary Hospital Course Hospital Course: Patient was admitted with acute overdose. was given iv fluids and medications. No complications during the stay in the hospital Elctrolytes were replaced and monitored. Time spent discussing smoking cessation with patient: 3 to 10 minutes Status at Discharge Cognitive/behavioral status at discharge: Stable Functional status at discharge: independent ambulation Overall status at discharge: patient is back to baseline Time Spent with Patient Time attestation: Total time spent providing and/or coordinating discharge services: Time spent: Less than 30 minutes Exam Narrative: Exam Narrative: General: Agitated HEENT: Normocephalic, atraumatic. PERRL Neck: Supple. No JVD. Respiratory: Air entry good no additional sounds. Cardiovascular: Regular rate and rhythm with S1-S2. No murmur, rub, or gallop. Gastrointestinal: Abdomen is soft, nontender, and nondistended with positive bowel sounds. Skin: Warm and dry. Multiple tattoos. Abrasions on right miller from a chain link fence that he was installing this week according to the . Extremities: No cyanosis, clubbing, or edema. Radial and pedal pulses intact. Neurological: Alert and moves extremities Psychiatric: Agitated Discharge Plan Discharge Consulting providers: Chantel Alaniz ; Sharita Lindsey ; Prabhjot Ortiz ; Kalin Carlson ; Quan Ward ; Natan Aguayo ; Charles Ramos V. Patient Disposition: Left Against Medical Advice Patient Instructions: How to Stop Smoking (DC) Discharge Medications: No Action No Home Medications RF: 0 Date of admission: 05/25/20 23:10 Primary Care Provider: HenrryReny Admitting Provider: Duran Parham Attending physician on admission: Duran Parham Condition: Stable Quality VTE Prophylaxis VTE prophylaxis: mechanical ordered
[2020-05-30 00:44] LABS: Methyl Alcohol Level None Detected (None Detected)
== END 2020-05-28 11:20 | disposition left against medical advice (07) | DRG 812 ==
LOC: ANHED 23:43 → ANHICU 05-26 00:19
PROVIDERS: Internal Medicine; Physician Assistant; Admitting Provider Internal Medicine; Emergency Provider Emergency Medicine; PCP Nurse Practitioner Family; Visit Provider Internal Medicine
DX: T50.904A Poisoning by unspecified drugs, medicaments and biological substances, undetermined, initial encounter (principal); J96.00 Acute respiratory failure, unspecified whether with hypoxia or hypercapnia; R56.9 Unspecified convulsions; E87.6 Hypokalemia; F19.10 Other psychoactive substance abuse, uncomplicated; Z28.21 Immunization not carried out because of patient refusal
CPT/HCPCS: 31500; 36415; 36600; 70450; 71045; 72125; 80048; 80053; 80076; 80307; 81001; 82375; 82550; 82805; 83050; 83605; 83735; 84100; 84443; 84600; 85025; 93005; 94003; 96374; 96375; 99285; A9270; C9113; J0330; J1630; J1650; J2060; J2250; J2310; J2704; J3010; J3360; J3480; J7030

== ENCOUNTER 2020-08-08 18:00 | Emergency (ER) | payer OTHER, SELFPAY ==
[2020-08-08 18:02] VITALS: BP 147/57; PULSE 75; RESP 19; TEMP 36.4; O2SAT 100
--- NOTE | 2020-08-08 19:15 | ED.EAR ---
HPI - Ear Problem General Chief complaint: Ear Stated complaint: Water In Right Ear Time Seen by Provider: 08/08/20 18:42 Source: patient Mode of arrival: ambulatory Limitations: no limitations History of Present Illness HPI Narrative: This is a 25-year-old male that presents to the emergency department for right ear discomfort x1 week. Reports feeling like there is water in his ear. Denies fever or drainage. Related Data Home Medications Medication Instructions Recorded Confirmed No Home Medications 05/26/20 05/26/20 Allergies Allergy/AdvReac Type Severity Reaction Status Date / Time quetiapine [From Seroquel] AdvReac Agitated Verified 05/27/20 19:16 Review of Systems Review of Systems: Narrative: CONSTITUTIONAL: Denies fever ENT: Reports otalgia. All systems reviewed & are unremarkable except as noted in HPI and below PMFSH Past Medical History Medical History (Updated 08/08/20 @ 19:19 by Mairah Bañuelos PA-C) Anxiety Valera esophagus Drug abuse Longstanding history of drug abuse since his teenage years including THC, bath salts, methamphetamines, marijuana, and fentanyl. Surgical History Surgical History No history of previous surgery Family History Family History Other Alcoholism Social History Social History (Updated 05/26/20 @ 03:44 by Sharita Lindsey PA-C) Social History: The patient lives in [place] with his and her 8-year-old daughter. 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 He uses electronic cigarettes. Drinks perhaps 21 alcoholic beverages a week, according to his . Longstanding history of drug abuse including THC, heroin, methamphetamines, bath salts, and fentanyl. Smoking status: Unknown if ever smoked Tobacco type: e-cigarettes/vaping Alcohol intake: current Drinks per week: 21 Substance use: current Substance use type: marijuana, heroin and opiates Spiritual care concerns: No Exam Narrative: Exam Narrative: GENERAL: Well-appearing, well-nourished, and in no acute distress. HEAD: Normocephalic, atraumatic. EYES: EOMI. ENT: Nares clear, no rhinorrhea or epistaxis. Mucous membranes moist. Oropharynx without tonsillar hypertrophy exudate or other lesions. Bilateral TMs pearly soler non-bulging. Normal external auditory canals bilaterally. No mastoid tenderness or swelling NECK: Supple. No adenopathy or masses. CHEST: Clear to auscultation. No respiratory distress. No wheezes rales or rhonchi HEART: Regular rate and rhythm. No murmur heard. Normal peripheral pulses. EXTREMITIES: Normal range of motion. No edema. SKIN: Warm, dry, no rash. NEURO: No focal deficits. Alert and oriented x3. PSYCH: Normal mood and affect Course Vital Signs Vital signs: Vital Signs Temperature 97.5 F L 08/08/20 18:02 Pulse Rate 75 08/08/20 18:02 Respiratory Rate 19 08/08/20 18:02 Blood Pressure 147/57 H 08/08/20 18:02 Pulse Oximetry 100 08/08/20 18:02 Temperature 97.5 F L 08/08/20 18:02 Pulse Rate 75 08/08/20 18:02 Respiratory Rate 19 08/08/20 18:02 Blood Pressure 147/57 H 08/08/20 18:02 Pulse Oximetry 100 08/08/20 18:02 Medical Decision Making MDM Narrative Medical decision making narrative: Patient presents the emergency department for right ear discomfort x1 week. He is afebrile and nontoxic-appearing. Exam is normal. Normal external auditory canals and normal TMs bilaterally. Reports multiple episodes of similar pain in the past where he has been seen in the ED with a normal exam. Was instructed to use antihistamines and follow-up with an ENT doctor. He was given warnings to return the ER Vital Signs Vital Signs: Vital Signs Temperature 97.5 F L 08/08/20 18:02 Pulse Rate 75 08/08/20 18:02 Respiratory Rate 19 08/08/20 18:02 Blood Pressure 147/57 H 08/08/20 18:02
== END 2020-08-08 19:32 | disposition home or self-care (01) ==
PROVIDERS: Emergency Provider Emergency Medicine; PCP Nurse Practitioner Family
DX: H92.01 Otalgia, right ear (principal); G89.29 Other chronic pain; K22.70 Barrett's esophagus without dysplasia; F17.290 Nicotine dependence, other tobacco product, uncomplicated
CPT/HCPCS: 99281

== ENCOUNTER 2020-08-23 18:19 | Emergency (ER) | payer OTHER, SELFPAY ==
--- NOTE | ~2020-08-23 | XR_ITS ---
XR hand LT min 3V 08/23/2020 19:57 Indication: Left hand pain Procedure: 3 views left hand Comparison: Forearm series dated 08/23/2020 Findings: There is a nondisplaced longitudinal intra-articular fracture distal aspect of the radius. Fracture not appreciated on the forearm series. No other fracture identified. No significant soft tis chari abnormality. No foreign bodies. Impression: 1: Nondisplaced intra-articular fracture distal aspect of the left radius. Reviewed, dictated and finalized at location A. Impression: 1: Nondisplaced intra-articular fracture distal aspect of the left radius.
--- NOTE | ~2020-08-23 | XR_ITS ---
XR forearm LT 2V 08/23/2020 18:53 INDICATION: Left arm pain PROCEDURE: 2 views left forearm COMPARISON: No prior studies for comparison. FINDINGS: Fracture, dislocation or subluxation is not identified. The soft tissues appear within norm al limits. No foreign bodies are identified. IMPRESSION: 1: NO ACUTE BONE OR JOINT ABNORMALITY IDENTIFIED. Reviewed, dictated and finalized at location A.
[2020-08-23 18:21] VITALS: BP 146/75; PULSE 119; RESP 16; TEMP 36.9; O2SAT 99
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
--- NOTE | 2020-08-23 19:36 | ECG_ITS ---
Measurements Intervals [place] Rate: 95 P: 78 MT: 167 QRS: 86 QRSD: 98 T: 69 QT: 330 QTc: 415 Interpretive Statements SINUS RHYTHM INCOMPLETE RIGHT BUNDLE BRANCH BLOCK ST ELEVATION IN ANT/INF LEADS, PROBABLY EARLY REPOLARIZATION OR PERICARDITIS ABNORMAL ECG Electronically Signed On 08-24-2020 6:02:54 CDT by Quan Ward D.O.
[2020-08-23] MEDS: KETOROLAC (*BKC) 60 MG/2 ML VIAL IM (20:14)
[2020-08-23] MEDS: LORazepam INJ (*CRX) 2 MG/ML VIAL 0.5 MG IM (20:15)
[2020-08-23 20:21] VITALS: BP 144/72; PULSE 103; RESP 18; TEMP 36.8; O2SAT 98
== END 2020-08-23 21:18 | disposition home or self-care (01) ==
PROVIDERS: Emergency Provider Nurse Practitioner; PCP Nurse Practitioner Family
DX: S52.572A Other intraarticular fracture of lower end of left radius, initial encounter for closed fracture (principal); Y04.0XXA Assault by unarmed brawl or fight, initial encounter; F41.9 Anxiety disorder, unspecified; K22.70 Barrett's esophagus without dysplasia
CPT/HCPCS: 29125; 73090; 73130; 93005; 96372; 99284; J1885; J2060

== ENCOUNTER 2020-09-29 22:44 | Observation (INO) | payer OTHER, SELFPAY ==
--- NOTE | ~2020-09-29 | CT_ITS ---
EXAMINATION: CT brain wo con EXAM DATE: 09/29/2020 23:16 INDICATION: Confusion, loss of consciousness. Temporary change in awareness. TECHNIQUE: Spiral CT of the head was performed without contrast. Axial, coronal and sagittal images were reviewed. The dose-length product (DLP) for this examination was 605.33 mGy-cm. The exposure w as tailored according to patient size, and iterative reconstruction (ASIR) was used as additional dos e reduction technique. Comparison is made to prior examination from 05/25/2020. FINDINGS: There is no acute intraparenchymal hemorrhage. No evidence of intraparenchymal brain mass lesion. No evidence of acute infarction. There is no mass effect or midline shift. The ventricles are normal in size. There are no extra-axial collections. There are no acute calvarial fractures. T he orbits are unremarkable. Soft tissue is unremarkable. Mild to moderate sinus mucoperiosteal thic kening. Mastoid air cells are well aerated. IMPRESSION: 1. No acute intracranial findings. Reviewed, dictated and finalized at location A.
--- NOTE | ~2020-09-29 | XR_ITS ---
EXAMINATION: XR chest 1V portable DATE: 09/30/2020 02:31 INDICATION: Chest pain TECHNIQUE: frontal view of the chest was obtained. COMPARISON: Chest radiograph dated 05/27/2020 FINDINGS: The lungs are clear with no focal airspace opacities, pulmonary edema, pleural effusion or pneumothor ax. The cardiomediastinal silhouette is normal. Mild thoracic dextrocurvature. IMPRESSION: 1. No acute cardiopulmonary disease. Reviewed, dictated and finalized at location A.
[2020-09-29 22:44] VITALS: BP 154/99; PULSE 113; RESP 18; TEMP 36.7; O2SAT 100
--- NOTE | 2020-09-29 22:58 | ECG_ITS ---
Measurements Intervals [place] Rate: 95 P: 74 DE: 179 QRS: 81 QRSD: 101 T: 56 QT: 316 QTc: 398 Interpretive Statements SINUS RHYTHM INCOMPLETE RIGHT BUNDLE BRANCH BLOCK ST ELEVATION IN DIFFUSE LEADS CONSISTENT WITH PERICARDITIS, OR EARLY REPOLARIZATION ABNORMAL ECG Electronically Signed On 09-30-2020 6:37:42 CDT by Quan Ward D.O.
--- NOTE | 2020-09-29 22:59 | ED.AMS ---
HPI - Altered Mental Status General Chief Complaint: Chest Pain Stated Complaint: od Time Seen by Provider: 09/29/20 22:52 Source: EMS Mode of arrival: EMS Limitations: no limitations History of Present Illness HPI narrative: Patient is a 25-year-old male brought in by EMS after he stopped breathing after doing a line of fentanyl bystander CPR prior to EMS arrival. Upon their arrival at the scene, patient already had a pulse, was given Narcan which reversed his apnea and altered mental status. Patient is alert awake and oriented x4 upon arrival to the emergency room. Related Data Allergies Allergy/AdvReac Type Severity Reaction Status Date / Time quetiapine [From Seroquel] AdvReac Agitated Verified 08/24/20 15:07 Review of Systems Review of Systems: All systems reviewed & are unremarkable except as noted in HPI and below Constitutional: Constitutional: Denies body ache(s), Denies chills, Denies excessive sweating, Denies fatigue, Denies fever(s), Denies headache(s), Denies lethargy, Denies malaise, Denies weakness and Denies weight loss Eyes: Eyes: Denies blurry vision, Denies change in vision and Denies loss of vision ENT: Denies dizziness, Denies ear discharge, Denies headache(s), Denies lip swelling, Denies epistaxis, Denies nasal congestion, Denies neck pain, Denies throat swelling and Denies tongue swelling Cardiovascular: Cardiovascular: Denies chest pain, Denies chest pain at rest, Denies chest pain with activity, Denies diaphoresis, Denies rapid heart rate, Denies edema, Denies irregular heart rhythm, Denies lightheadedness, Denies palpitations, Denies dyspnea and Denies dyspnea on exertion Respiratory: Respiratory: Denies chest congestion, Denies cough, Denies hemoptysis, Denies dyspnea and Denies dyspnea on exertion Gastrointestinal: Gastrointestinal: Denies abdominal pain, Denies melena, Denies hematochezia, Denies diarrhea, Denies nausea, Denies vomiting and Denies hematemesis Musculoskeletal: Musculoskeletal: Denies abnormal gait, Denies deformity, Denies joint swelling, Denies limited range of motion, Denies neck pain and Denies numbness Neurologic: Denies Abnormal speech present, Denies abnormal gait, Denies confusion, Denies dizziness, Denies headache(s), Denies focal weakness, Denies loss of vision, Denies numbness, Denies Other visual disturbances, Denies Sensory deficit (Neuro) and Denies weakness Psychiatric: Psychiatric: Denies confusion, Denies depression, Denies auditory hallucinations, Denies homicidal ideation and Denies suicidal ideation Endocrine: Endocrine: Denies cold intolerance, Denies excessive sweating, Denies fatigue, Denies heat intolerance and Denies palpitations Hematologic/Lymphatic: Hematologic/Lymphatic: Denies easy bleeding and Denies easy bruising Allergic/Immunologic: Allergic/Immunologic: Denies lip swelling, Denies throat swelling and Denies tongue swelling PMFSH Past Medical History Medical History Anxiety Valera esophagus Drug abuse Longstanding history of drug abuse since his teenage years including THC, bath salts, methamphetamines, marijuana, and fentanyl. Surgical History Surgical History No history of previous surgery Family History Family History Other Alcoholism Social History Social History Social History: The patient lives in [place] with his and her 8-year-old daughter. He uses electronic cigarettes. Drinks perhaps 21 alcoholic beverages a week, according to his . Longstanding history of drug abuse including THC, heroin, methamphetamines, bath salts, and fentanyl. Smoking status: Current every day smoker Tobacco type: e-cigarettes/vaping Alcohol intake: current Drinks per week: 21 Substance use: current Substance u
--- NOTE | 2020-09-29 23:03 | PC.NURSE ---
Report received from SAVI Ackerman.
--- NOTE | 2020-09-29 23:10 | PC.NURSE ---
Initial assessment noted. Pt alert, voice hoarse. Pt states has garcias's esophagus so he thinks that's why his throat is sore. Pt states that he did fentanyl tonight and I think i they told me . Explained to patient that they had reportedly done cpr on the patient. Pt states that I know, I know, I need to go to rehab . Note ?petechiae scattered across chest at diaphragm and upper shoulders. Rangel MA at bedside.
[2020-09-29 23:49] VITALS: BP 144/91; PULSE 97; RESP 18; O2SAT 100
[2020-09-29 23:49] LABS: Basophils Absolute Auto 0.1 K/mm3 (0.0-0.1); Basophils Percent Auto 0.5 % (0.2-1.2); Eosinophils Absolute Auto 0.2 K/mm3 (0-0.3); Eosinophils Percent Auto 2.1 % (0-4.4); Hematocrit 37.9 % (42.0-52.0); Hemoglobin 13.2 g/dL (14.0-18.0); Immature Granulocyte Absolute 0.04 K/mm3 (0.00-0.031); Immature Granulocyte Percent A 0.4 % (0-0.5); Lymphocytes Absolute Auto 2.36 K/mm3 (0.9-3.2); Lymphocytes Percent Auto 21.3 % (18.3-44.2); Mean Corpuscular HGB Conc 34.8 g/dl (32-36); Mean Corpuscular Hemoglobin 30.3 pg (26-34); Mean Corpuscular Volume 86.9 fl (80-100); Mean Platelet Volume 8.9 fl (7.4-10.4); Monocytes Absolute Auto 1.3 K/mm3 (0.1-0.6); Monocytes Percent Auto 11.5 % (2.6-8.5); Neutrophils Absolute Auto 7.1 K/mm3 (1.3-6.7); Neutrophils Percent Auto 64.2 % (45.5-73.1); Platelet Count Result 213 k/mm3 (150-375); Red Blood Count 4.36 M/mm3 (4.6-6.20); Red Cell Distribution Width 12.4 % (11.5-14.5); White Blood Count 11.1 K/mm3 (4.5-10.0)
[2020-09-29] MEDS: SODIUM CHLORIDE 0.9% IV 1,000 ML 999 ML IV CONT (23:50)
[2020-09-29 23:52] VITALS: PULSE 102
[2020-09-30] VITALS (24 sets, daily range): BP systolic 132–166; BP diastolic 77–99; PULSE 70–100; RESP 11–20; TEMP 36.2–36.6; O2SAT 90–100; BMI 23.2
[2020-09-30 00:01] LABS: Alanine Aminotransferase 17 U/L (4-50); Albumin Level 4.7 g/dL (3.5-5.1); Alkaline Phosphatase 66 U/L (38-126); Anion Gap 12 mmol/L (8-16); Aspartate Amino Transferase 37 U/L (17-59); Blood Urea Nitrogen 13 mg/dL (9-20); Calcium 9.7 mg/dL (8.4-10.2); Carbon Dioxide 24 mmol/L (22-30); Chloride 102 mmol/L (98-107); Estimated CRCL calculation 119 ml/min; Estimated Glomerular Filt Rate > 60; Glucose 79 mg/dL (75-110); Potassium 3.1 mmol/L (3.4-5.0); Sodium 138 mmol/L (137-145)
[2020-09-30 00:03] LABS: Acetaminophen < 10 ug/mL (10-30); Ethanol < 10 mg/dL (<10); Salicylate < 1.0 mg/dL (2-20)
--- NOTE | 2020-09-30 00:05 | PC.NURSE ---
Note pt's spo2 consistently 88-89% when pt sleeping. Awakens easily and spo2 increases. Placed on 2L/NC precautionary. Dr. Nair aware and at bedside.
[2020-09-30 00:12] LABS: Troponin I 0.018 ng/mL (0.000-0.034)
--- NOTE | 2020-09-30 00:16 | PC.NURSE ---
Repeat EKG being done.
--- NOTE | 2020-09-30 00:17 | ECG_ITS ---
Measurements Intervals [place] Rate: 89 P: 80 [place]: 182 QRS: 79 QRSD: 101 T: 50 QT: 333 QTc: 407 Interpretive Statements SINUS RHYTHM INCOMPLETE RIGHT BUNDLE BRANCH BLOCK ST ELEVATION IN DIFFUSE LEADS, PROBABLY EARLY REPOLARIZATION BASELINE ARTIFACT- II, III, AVR, AVF, V2-V6 BORDERLINE ECG Electronically Signed On 09-30-2020 13:20:27 CDT by Quan Ward D.O.
[2020-09-30 01:40] LABS: Amphetamine Screen Urine Positive (Negative); Barbiturate Screen Urine Negative (Negative); Benzodiazepines Screen Urine Negative (Negative); Cannabinoid Screen Urine Negative (Negative); Cocaine Screen Urine Negative (Negative); Methadone Screen Urine Negative (Negative); Opiate Screen Urine Negative (Negative); Phencyclidine Screen Urine Negative (Negative)
--- NOTE | 2020-09-30 01:41 | PC.NURSE ---
Pt moved to Rm 13. Report to SAVI Camilo, to continue care. Pt had c/o some chest pain prior to moving but he reports since he was up in the chair it feels better. Awaiting disposition.
--- NOTE | 2020-09-30 03:40 | PC.NURSE ---
Report received from SAVI Camilo.
--- NOTE | 2020-09-30 04:10 | ADMGEN ---
This patient, Mark Brown, was admitted to IMU Room 209-01 on 09-30-20 at 0408. Patient/family oriented to hospital policies and general routines including ID bracelet, bed and alarms, visiting hours, pain management, procedures, bathroom and other care routines, personal items, smoking policy, room service/diet, and visiting hours. Information on how to activate the Rapid Response Team has been discussed. Patient/Family are encouraged to report perceived risks to care and to ask questions if they do not understand what they are told or what they should do.
[2020-09-30] MEDS: LACTATED RINGERS 1,000 ML 125 ML IV CONT ×3 (04:28→19:53)
--- NOTE | 2020-09-30 09:55 | PM.IMHP ---
H&P: HPI History of Present Illness Date/Time: PATIENT ADMITTED UNDER OBSERVATIONAL STATUS 09/30/20 09:55 Chief Complaint: I overdosed on Fentanyl Narrative: 25yo male with hx of polysubstance abuse here for fentanyl overdose resulting in cardiopulmonary arrest. Patient has a long history since teenage years of drug use including THC, heroin, meth, bath salts and fentanyl. He has been in/out of drug rehabs with last time was about 8 years ago. He last overdosed in May 2020 and was hospitalized here requiring mechanical ventilation. He also had a seizure felt related to Romazicon. Outpatient rehab encouraged but patient did not attend. He states he normally has bouts of sobriety and was remaining clean for about 3 months until he began using 1 month ago. He states it started after his told memo that she had been unfaithful. Patient also drinks alcohol in binges about 2x/month on average. He denies any recent physical symptoms prior to the overdose such as fever, chills, chest pain, SOB, nausea, vomiting. He does have numbness in areas of his body (ex: left calf, right posterior upper arm) but no focal weakness. He states he used fentanyl earlier on the day of admission and later was in the shower with his when he 'fell out' with loss of consciousness. Police arrived first and noted no pulse on assessment. CPR was started. On EMS arrival, patient had a pulse. Narcan was given and patient became more awake and alert. He does not have Narcan at home. Patient was awake and alert upon arrival to the ED. UDS positive for amphetamines. Trop negative. Salicylates/Alcohol/Acetaminophen negative. Potassium low at 3.1. Brain CT and CXR clear. EKG showing normal sinus with ST elevation in diffuse leads, probably early repolarization. Cardiology called but did not feel EKG was of concern. IV fluids started. Patient admitted for further care. He has pleuritic chest pain currently but better overall now. Review of Systems Review of Systems: All systems reviewed & are unremarkable except as noted in HPI and below PMFSH Past Medical History Medical History (Updated 09/30/20 @ 10:31 by Duran Parham MD) Anxiety Valera esophagus Celiac disease Drug abuse Longstanding history of drug abuse since his teenage years including THC, bath salts, methamphetamines, marijuana, and fentanyl. Surgical History Surgical History No history of previous surgery Family History Family History (Updated 09/30/20 @ 05:01 by Radha Erickson RN) Grandparent Diabetes mellitus Mother Alcoholism Father Polysubstance (excluding opioids) dependence Social History Social History (Updated 09/30/20 @ 10:27 by Duran Parham MD) Social History: The patient lives with his . He was recently evicted and currently staying at a hotel. His has a 9-year-old girl that is currently staying with the grandmother. He uses electronic cigarettes. Binge drinks 2x/month. Longstanding history of drug abuse including THC, heroin, methamphetamines, bath salts, and fentanyl. Full code. to make decisions for him if he is unable. Smoking packs per day: 2 Smoking cigarettes per day: 40.0 Years smoked: 15 Smoking pack-years: 30.00 Smoking status: Current every day smoker Tobacco type: e-cigarettes/vaping Second hand tobacco smoke exposure: Yes Alcohol intake: current Drinks per week: 12 Substance use: current Substance use type: heroin, amphetamines, opiates and methamphetamine Last use: 08/22/20 Additional occupation/education comments: [employer] Gender identity (if verbalized by the patient): Male Spiritual care concerns: No Meds Home Medications and Allergies Home Medications Medication Instructions Recorded Confirmed Type ibuprofen 800 mg PO TID PRN #20 tablet 08/23/20 09/30/20 Rx hydrocodone 7.5
[2020-09-30] MEDS: POTASSIUM CHLORIDE 20 MEQ TABLET PO (11:14)
[2020-09-30] MEDS: LORazepam (*CRX) 0.5 MG TABLET PO ×3 (11:14→23:26)
--- NOTE | 2020-09-30 11:38 | PCNSR ---
On 09/30/20, the student, Teresa Torres, provided care and completed [facility] documentation on this patient. I have reviewed the student's documentation and agree with the findings.
[2020-09-30] MEDS: ENOXAPARIN 40 MG/0.4 ML SYRINGE SUB-Q (12:56)
[2020-09-30 14:13] LABS: Magnesium 1.8 mg/dL (1.6-2.3); Potassium 3.6 mmol/L (3.4-5.0)
[2020-09-30 14:25] LABS: Troponin I < 0.012 ng/mL (0.000-0.034)
[2020-09-30] MEDS: HYDROcodone/acetaminophen (*CRX) 7.5-325 MG TABLET 1 TAB PO ×2 (14:55→19:53)
[2020-09-30] MEDS: QUEtiapine FUMARATE 100 MG TABLET PO (19:53)
[2020-09-30] MEDS: cloNIDine HCL 0.1 MG TABLET PO (23:26)
[2020-10-01] VITALS (8 sets, daily range): BP systolic 123–148; BP diastolic 69–94; PULSE 60–93; RESP 12–16; TEMP 36.1–36.5; O2SAT 98–100
[2020-10-01] MEDS: HYDROcodone/acetaminophen (*CRX) 7.5-325 MG TABLET 1 TAB PO (03:23)
[2020-10-01] MEDS: LACTATED RINGERS 1,000 ML 125 ML IV CONT (03:24)
--- NOTE | 2020-10-01 08:00 | ECG_ITS ---
Measurements Intervals [place] Rate: 67 P: 57 [place]: 147 QRS: 83 QRSD: 98 T: 67 QT: 356 QTc: 378 Interpretive Statements SINUS RHYTHM INCOMPLETE RIGHT BUNDLE BRANCH BLOCK ST ELEVATION IN DIFFUSE LEADS WITH PEAKED T WAVES- CONSIDER HYPERKALEMIA OR ISCHEMIA ABNORMAL ECG Electronically Signed On 10-01-2020 13:19:19 CDT by Quan Ward D.O.
[2020-10-01] MEDS: ENOXAPARIN 40 MG/0.4 ML SYRINGE SUB-Q (09:33)
[2020-10-01] MEDS: cloNIDine HCL 0.1 MG TABLET PO (09:33)
--- NOTE | 2020-10-01 09:33 | PM.DS ---
DS: Admitting Diagnosis Admitting Diagnosis Admitting Diagnosis: Unintentional drug overdose with presumed cardiopulmonary arrest DS: Discharge Diagnosis Discharge Diagnosis (1) Cardiac arrest: Code(s): I46.9 - Cardiac arrest, cause unspecified Status: Acute Assessment and Plan: Patient with unintentional overdose and no pulse appreciated by police on arrival and thus CPR started. By EMS arrival, patient had a pulse and became more awake and alert after given Narcan. Possible cardiopulmonary arrest related to drug overdose. ST-elevation by EKG diffusely most likely related to repolarization; these findings seen by previous EKG in May. Troponin negative x3. No concerning findings on telemetry. Patient advised strongly to abstain from drug use. Narcan given at discharge. (2) Acute drug overdose: Qualifiers: Encounter type: initial encounter Injury intent: undetermined intent Qualified Code(s): T50.904A - Poisoning by unspecified drugs, medicaments and biological substances, undetermined, initial encounter Code(s): T50.901A - Poisoning by unspecified drugs, medicaments and biological substances, accidental (unintentional), initial encounter Status: Acute Assessment and Plan: Patient has long history of polysubstance abuse. Presumably the trigger for him to start using again was related to his being unfaithful. Long discussion with patient about benefits of abstaining from drug use. Discussed that he has been close to multiple times and that he is high risk of an untimely . Explained that patient needs to have Narcan at home. Drug rehab literature was provided the patient and he was strongly encouraged follow-up with drug rehab. (3) Altered mental status: Qualifiers: Altered mental status type: unspecified Qualified Code(s): R41.82 - Altered mental status, unspecified Code(s): R41.82 - Altered mental status, unspecified Status: Acute Assessment and Plan: Patient had altered mental status related to his fentanyl overdose. Mental status has resolved. (4) Hypokalemia: Code(s): E87.6 - Hypokalemia Status: Acute Assessment and Plan: Potassium was 3.1 on admission. This was replaced. Repeat potassium normal. Mag level normal. (5) Polysubstance abuse: Code(s): F19.10 - Other psychoactive substance abuse, uncomplicated Status: Acute Assessment and Plan: Patient has long hx of polysubstance abuse. We resumed his Seroquel. He was having the feelings of withdrawal so his home [place] added back. Ativan available for agitation. Clonidine added as well. He remained calm without evidence of withdrawals during his hospital course. (6) ST elevation: Code(s): R94.31 - Abnormal electrocardiogram [ECG] [EKG] Status: Acute Assessment and Plan: As above. Potassium was replaced. EKG was repeated and showing similar findings. This was noted in July as well. [place] findings more consistent with repolarization. DS: Summary Hospital Course Reason for hospitalization: 25yo male with known hx of polysubstance abuse here for cardiopulmonary arrest after unintentional drug overdose. Please see H&P for details. Hospital Course: Please see above for details of hospital course. Status at Discharge Cognitive/behavioral status at discharge: Stable Time Spent with Patient Time attestation: Total time spent providing and/or coordinating discharge services: 35 minutes Time spent: Greater than 30 minutes Exam Narrative: Exam Narrative: AF 97.7 123/69 69 12 98% ra Gen - NARD lying flat in bed Chest - CTA bilaterally, nml RR CV - RRR S1/S2; Tele showing no significant dysrhythmias Abd - soft, NT/ND, +BS Ext - no pedal edema Psych - normal mood and affect. Skin - warm and dry. DS: Data Data Completed and Pending Labs on day of discharge: Veronica
== END 2020-10-01 11:50 | disposition home or self-care (01) ==
LOC: ANHED 09-30 02:25 → ANHIMU 09-30 05:20
PROVIDERS: Admitting Provider Internal Medicine; Emergency Provider Emergency Medicine; Visit Provider Internal Medicine
DX: T50.904A Poisoning by unspecified drugs, medicaments and biological substances, undetermined, initial encounter (principal); I46.8 Cardiac arrest due to other underlying condition; E87.6 Hypokalemia; F19.10 Other psychoactive substance abuse, uncomplicated; R94.31 Abnormal electrocardiogram [ECG] [EKG]; F17.290 Nicotine dependence, other tobacco product, uncomplicated
CPT/HCPCS: 36415; 70450; 71045; 80053; 80307; 83735; 84132; 84484; 85025; 93005; 96360; 96361; 96372; 99285; A9270; G0378; G0379; J1650; J7030; J7120

== ENCOUNTER 2021-01-20 09:49 | Emergency (ER) | payer OTHER, SELFPAY ==
[2021-01-20 10:19] VITALS: BP 151/83; PULSE 71; RESP 16; TEMP 36.5; O2SAT 100
--- NOTE | 2021-01-20 11:39 | ED.GENADULT ---
HPI - General Adult General Chief complaint: Skin/Abscess/Foreign Body Stated complaint: infected shot spot Time Seen by Provider: 01/20/21 11:07 Source: patient Mode of arrival: ambulatory Limitations: no limitations History of Present Illness HPI narrative: Patient presents with chief complaint of drainage from an area to his upper right umbilicus that he noticed 3 to 4 days ago. Patient reports that he received a Sublocade injection in the area. He reports that he has been cleaning the area but not applying Neosporin as he thought he was not allowed to. He denies fevers, vomiting, red streaking area from the wound site. He denies known MRSA history. Related Data Allergies Allergy/AdvReac Type Severity Reaction Status Date / Time No Known Allergies Allergy Verified 01/20/21 10:23 Review of Systems Review of Systems: CONSTITUTIONAL: Denies fever, chills, or sweats. EYES: Denies visual changes, redness, or discharge. ENT: Denies rhinorrhea, congestion, sore throat, or otalgia. CARDIOVASCULAR: Denies chest pain, palpitations, or edema. RESPIRATORY: Denies cough or dyspnea. GASTROINTESTINAL: Denies abdominal pain, nausea, vomiting, or diarrhea. GENITOURINARY: Denies dysuria or hematuria. SKIN: Reports wound denies rash or itching. MUSCULOSKELETAL: Denies back pain, joint pain, or myalgia. NEUROLOGIC: Denies headache, numbness, dizziness, or weakness. PSYCHIATRIC: Denies anxiety or depression. [facility] Past Medical History Medical History (Updated 01/20/21 @ 11:37 by Racquel Payne PA-C) Anxiety Valera esophagus Celiac disease Drug abuse Longstanding history of drug abuse since his teenage years including THC, bath salts, methamphetamines, marijuana, and fentanyl. Surgical History Surgical History No history of previous surgery Family History Family History (Updated 09/30/20 @ 05:01 by Radha Erickson RN) Grandparent Diabetes mellitus Mother Alcoholism Father Polysubstance (excluding opioids) dependence Social History Social History (Updated 09/30/20 @ 10:27 by Duran Parham MD) Social History: The patient lives with his . He was recently evicted and currently staying at a hotel. His has a 9-year-old girl that is currently staying with the grandmother. He uses electronic cigarettes. Binge drinks 2x/month. Longstanding history of drug abuse including THC, heroin, methamphetamines, bath salts, and fentanyl. Full code. to make decisions for him if he is unable. Smoking packs per day: 2 Smoking cigarettes per day: 40.0 Years smoked: 15 Smoking pack-years: 30.00 Smoking status: Current every day smoker Tobacco type: e-cigarettes/vaping Second hand tobacco smoke exposure: Yes Alcohol intake: current Drinks per week: 12 Substance use: current Substance use type: heroin, amphetamines, opiates and methamphetamine Last use: 08/22/20 Additional occupation/education comments: [employer] Gender identity (if verbalized by the patient): Male Spiritual care concerns: No Exam Narrative: GENERAL: Well-appearing, well-nourished, and in no acute distress. HEAD: Normocephalic, atraumatic. EYES: PERRLA and EOMI. CHEST: Clear to auscultation. No respiratory distress. No wheezes rales or rhonchi HEART: Regular rate and rhythm. No murmur heard. Normal peripheral pulses. ABDOMEN: Soft, nontender, nondistended, normal active bowel sounds. EXTREMITIES: Normal range of motion. No edema. SKIN: small pustule above the umbilicus without palpable fluctuance below. Green drainage noted to bandage.Warm, dry, no rash. NEURO: No focal deficits. Alert and oriented x3. PSYCH: Normal mood and affect. Course Vital Signs Vital signs: Vital Signs Temperature 97.7 F 01/20/21 10:19 Pulse Rate 71 01/20/21 10:19 Respiratory Rate 16 01/20/21 10:19 Blood Pressure 151/83 H 01/20/21 10:19 Pulse Oximetry 100 01/01
== END 2021-01-20 11:50 | disposition home or self-care (01) ==
PROVIDERS: Emergency Provider Emergency Medicine; PCP Nurse Practitioner Family
DX: T80.29XA Infection following other infusion, transfusion and therapeutic injection, initial encounter (principal); L02.211 Cutaneous abscess of abdominal wall; K22.70 Barrett's esophagus without dysplasia; K90.0 Celiac disease; F17.290 Nicotine dependence, other tobacco product, uncomplicated
CPT/HCPCS: 99283

== ENCOUNTER 2021-08-08 11:38 | Emergency (ER) | payer OTHER, SELFPAY ==
--- NOTE | ~2021-08-08 | US_ITS ---
EXAMINATION: US abdomen limited DATE: 08/08/2021 14:06 INDICATION: Right upper quadrant pain TECHNIQUE: Multiple grayscale and Doppler ultrasound images of the abdomen were obtained. COMPARISON: 12/14/2016 FINDINGS: The head, body, and tail of the pancreas are normal. The liver is normal with normal echoge nicity and echotexture. No surface nodularity. Normal hepatopetal flow in the main portal vein. The g allbladder is normal with no abnormal wall thickening, pericholecystic fluid or stones. The normal co mmon bile duct measures 4 mm. There was no sonographic Emanuel sign. IMPRESSION: 1. Normal sonographic study of the gallbladder. Reviewed, dictated and finalized at location A.
--- NOTE | ~2021-08-08 | CT_ITS ---
EXAMINATION: CT abdomen pelvis w con DATE: 08/08/2021 16:22 INDICATION: RUQ pain, constipation x 2 wk TECHNIQUE: Computed tomography (CT) of the abdomen and pelvis was performed with 100 mL Omnipaque-300 intravenous contrast. Automated exposure control and iterative reconstruction technique were employe d. The dose-length product was 234.89 mGy-cm. COMPARISON: Right upper quadrant ultrasound 08/08/2021. CT chest abdomen and pelvis 11/17/2015 FINDINGS: Lower thorax: Unremarkable Liver: Liver is enlarged. Slightly heterogeneous enhancement with minimal periportal edema. Biliary/Gallbladder: Gallbladder is normal. No bile duct dilation. Spleen: Normal. Splenic varix. Pancreas: No mass or duct dilation. Adrenals:No mass. Kidneys: No mass, stone, or hydronephrosis. GI tract: Distal esophageal and gastric wall edema mass can be seen with esophagitis/gastritis. No sm all or large bowel dilation. Appendix not visualized. Mesentery/Peritoneum: No ascites, mass, or free air. Retroperitoneum: No mass.. Pelvis: Pelvic organs are within normal limits. Soft Tissues: Soft tissues and body wall unremarkable. Bones: No acute osseous finding. IMPRESSION: CT findings may reflect early cirrhosis and portal hypertension, in the appropriate clinical context. Reviewed, dictated and finalized at location K. IMPRESSION: CT findings may reflect early cirrhosis and portal hypertension, in the appropr iate clinical context.
[2021-08-08 11:59] VITALS: BP 120/76; PULSE 88; RESP 18; TEMP 37; O2SAT 100
[2021-08-08 12:12] LABS: Basophils Percent Auto 0.9 % (0.2-1.2); Eosinophils Absolute Auto 0.2 K/mm3 (0-0.3); Eosinophils Percent Auto 4.5 % (0-4.4); Hematocrit 39.5 % (42.0-52.0); Hemoglobin 12.9 g/dL (14.0-18.0); Immature Granulocyte Absolute 0.01 K/mm3 (0.00-0.031); Immature Granulocyte Percent A 0.2 % (0-0.5); Lymphocytes Absolute Auto 1.46 K/mm3 (0.9-3.2); Lymphocytes Percent Auto 32.8 % (18.3-44.2); Mean Corpuscular HGB Conc 32.7 g/dl (32-36); Mean Corpuscular Hemoglobin 29.2 pg (26-34); Mean Corpuscular Volume 89.4 fl (80-100); Mean Platelet Volume 10.3 fl (7.4-10.4); Monocytes Absolute Auto 0.4 K/mm3 (0.1-0.6); Monocytes Percent Auto 9.7 % (2.6-8.5); Neutrophils Absolute Auto 2.3 K/mm3 (1.3-6.7); Neutrophils Percent Auto 51.9 % (45.5-73.1); Platelet Count Result 169 k/mm3 (150-375); Red Blood Count 4.42 M/mm3 (4.6-6.20); Red Cell Distribution Width 12.1 % (11.5-14.5); White Blood Count 4.5 K/mm3 (4.5-10.0)
[2021-08-08 12:24] LABS: Appearance Urine Clear (Clear); Bilirubin Urine 1+ (Negative); Blood Urine Negative (Negative); Color Urine Yellow (Yellow); Glucose Urine UA Negative (Negative); Ketones Urine Trace mg/dL (Negative); Leukocyte Esterase Ur Negative LEU/UL (Negative); Nitrate Urine Negative (Negative); Protein Urine Negative (Negative); Specific Grav Ur 1.025 (1.001-1.035); Urobilinogen Urine 0.2 mg/dL (<2.0)
[2021-08-08 12:27] LABS: Alanine Aminotransferase 16 U/L (6-50); Albumin Level 4.8 g/dL (3.5-5.1); Alkaline Phosphatase 58 U/L (38-126); Anion Gap 7 mmol/L (8-16); Aspartate Amino Transferase 29 U/L (17-59); Bilirubin,Total 2.2 mg/dL (0.2-1.3); Blood Urea Nitrogen 19 mg/dL (9-20); Calcium 9.6 mg/dL (8.4-10.2); Carbon Dioxide 27 mmol/L (22-30); Chloride 103 mmol/L (98-107); Estimated CRCL calculation 108 ml/min; Estimated Glomerular Filt Rate > 60; Glucose 101 mg/dL (65-110); Lipase 52 U/L (23-300); Sodium 137 mmol/L (137-145)
[2021-08-08 12:40] LABS: Mucus Urine Heavy /lpf; RBC Urine 0-2 /hpf (0-2); Squamous Epithelial Cell Urine Rare /hpf (Few); WBC Urine 0-3 /hpf
[2021-08-08 12:41] LABS: Add Urine Microscopic? YES
[2021-08-08] MEDS: SODIUM CHLORIDE 0.9% IV 1,000 ML 999 ML IV CONT (13:27)
--- NOTE | 2021-08-08 13:46 | ED.ABDPAIN ---
HPI - Abdominal Pain General Chief Complaint: Abdominal Pain Stated Complaint: abdominal pain Time Seen by Provider: 08/08/21 12:32 History of Present Illness HPI narrative: Patient is a 26-year-old male with a history of IV drug use (none for 1 year) here for evaluation of right upper quadrant pain for the past 4 months. Patient states the pain is intermittent and severe in nature, noted after eating meals. He additionally notes intermittent nausea and vomiting, in addition to constipation with his last normal bowel movement 2 weeks ago. He has been giving himself enemas to make himself have a bowel movement. He states the symptoms have asked him to eat a lot less, and he has lost about 50 pounds in the past year. He has seen a Dr. Monzon in the past and was diagnosed with Valera's esophagus, but he has not seen a GI doctor since these symptoms started. Denies bilious or bloody vomit, fevers, chills. He does have a history of a hemorrhoid, and states he had 1 episode of blood on the outside of his stool about 2 months ago, none since. He has not used illicit drugs for the past year, denies alcohol or tylenol use. Related Data Allergies Allergy/AdvReac Type Severity Reaction Status Date / Time No Known Allergies Allergy Verified 01/20/21 10:23 Review of Systems Review of Systems: Gen.: Denies fevers or chills Eyes: Denies eye pain or visual change ENT: Denies congestion Respiratory: Denies shortness of breath or cough CV: Denies chest pain or palpitations GI: Reports abdominal pain, nausea, vomiting, constipation. Reports weight loss. denies burning, urgency, frequency or hematuria Musculoskeletal: Denies back pain or muscle pain Neuro: Denies numbness, tingling, weakness or focal weakness Skin: Denies rash Except as documented, all other systems reviewed and negative All systems reviewed & are unremarkable except as noted in HPI and below PMFSH Past Medical History Medical History Anxiety Valera esophagus Celiac disease Drug abuse Longstanding history of drug abuse since his teenage years including THC, bath salts, methamphetamines, marijuana, and fentanyl. Surgical History Surgical History No history of previous surgery Family History Family History (Updated 09/30/20 @ 05:01 by Radha Erickson RN) Grandparent Diabetes mellitus Mother Alcoholism Father Polysubstance (excluding opioids) dependence Social History Social History (Updated 09/30/20 @ 10:27 by Duran Parham MD) Social History: The patient lives with his . He was recently evicted and currently staying at a hotel. His has a 9-year-old girl that is currently staying with the grandmother. He uses electronic cigarettes. Binge drinks 2x/month. Longstanding history of drug abuse including THC, heroin, methamphetamines, bath salts, and fentanyl. Full code. to make decisions for him if he is unable. Smoking packs per day: 2 Smoking cigarettes per day: 40.0 Years smoked: 15 Smoking pack-years: 30.00 Smoking status: Current every day smoker Tobacco type: e-cigarettes/vaping Second hand tobacco smoke exposure: Yes Alcohol intake: current Drinks per week: 12 Substance use: current Substance use type: heroin, amphetamines, opiates and methamphetamine Last use: 08/22/20 Additional occupation/education comments: [employer] Gender identity (if verbalized by the patient): Male Spiritual care concerns: No Exam Narrative: APPEARANCE: Uncomfortable appearing. Head: normocephalic and atraumatic. EYES: No scleral icterus. PERRLA/EOMI, conjunctivae clear NOSE: No nasal drainage EARS: External ear normal in appearance THROAT: Oropharynx is clear. Mucous membranes are moist. NECK: Supple. No adenopathy, no masses. RESPIRATORY: Airway patent, respirations nonlabored. Clear to au
[2021-08-08] MEDS: ONDANSETRON INJ 4 MG/2 ML VIAL IV PUSH (13:57)
[2021-08-08] MEDS: FAMOTIDINE 20 MG/2 ML VIAL IV PUSH (13:57)
[2021-08-08 14:22] VITALS: BP 120/78; PULSE 80; RESP 16; TEMP 36.3; O2SAT 98
[2021-08-08 15:00] VITALS: BP 126/70; PULSE 84; RESP 16; O2SAT 98
[2021-08-08 16:09] VITALS: BP 124/74; PULSE 86; RESP 16; O2SAT 99
[2021-08-08 17:17] LABS: INR 1.3; Prothrombin Time 15.3 Seconds (11.1-14.7)
[2021-08-08 18:09] VITALS: BP 124/74; PULSE 84; RESP 16; TEMP 36.8; O2SAT 100
== END 2021-08-08 18:09 | disposition home or self-care (01) ==
PROVIDERS: Family Medicine; Physician Assistant; Emergency Provider Emergency Medicine; PCP Nurse Practitioner Family
DX: R10.11 Right upper quadrant pain (principal); G89.29 Other chronic pain; K90.0 Celiac disease; K22.70 Barrett's esophagus without dysplasia; F17.290 Nicotine dependence, other tobacco product, uncomplicated
CPT/HCPCS: 36415; 74177; 76705; 80053; 81001; 83690; 85025; 85610; 96361; 96374; 96375; 99284; J2405; J7030; Q9967

== ENCOUNTER 2022-03-05 10:20 | Emergency (ER) | payer OTHER, SELFPAY ==
[2022-03-05 10:21] VITALS: BP 133/71; PULSE 75; RESP 14; TEMP 36.6; O2SAT 100
--- NOTE | 2022-03-05 10:30 | ED.GENADULT ---
HPI - General Adult General Chief complaint: Unspecified Stated complaint: Pain by wisdom teeth, cold symptoms Time Seen by Provider: 03/05/22 10:30 Source: patient and family Limitations: no limitations History of Present Illness HPI narrative: 27 years old white male presented to the ED with cold symptoms started 7 days ago, RSV exposure at work at that time. Also complaining of lower wisdom teeth pain mainly on the right side for the last few days. Does not have a dentist. Related Data Allergies Allergy/AdvReac Type Severity Reaction Status Date / Time No Known Allergies Allergy Verified 01/20/21 10:23 Review of Systems Review of Systems: All systems reviewed & are unremarkable except as noted in HPI and below PMFSH Past Medical History Medical History Anxiety Valera esophagus Celiac disease Drug abuse Longstanding history of drug abuse since his teenage years including THC, bath salts, methamphetamines, marijuana, and fentanyl. Surgical History Surgical History No history of previous surgery Family History Family History Grandparent Diabetes mellitus Mother Alcoholism Father Polysubstance (excluding opioids) dependence Social History Social History Social History: The patient lives with his . He was recently evicted and currently staying at a hotel. His has a 9-year-old girl that is currently staying with the grandmother. He uses electronic cigarettes. Binge drinks 2x/month. Longstanding history of drug abuse including THC, heroin, methamphetamines, bath salts, and fentanyl. Full code. to make decisions for him if he is unable. Smoking packs per day: 2 Smoking cigarettes per day: 40.0 Years smoked: 15 Smoking pack-years: 30.00 Smoking status: Current every day smoker Tobacco type: e-cigarettes/vaping Second hand tobacco smoke exposure: Yes Alcohol intake: current Drinks per week: 12 Substance use: current Substance use type: heroin, amphetamines, opiates and methamphetamine Last use: 08/22/20 Additional occupation/education comments: [employer] Gender identity (if verbalized by the patient): Male Spiritual care concerns: No Exam Narrative: General appearance: Well-developed, well-nourished Skin: Normal color Head: Normocephalic, nontraumatic Eyes: Clear conjunctiva ENT: Oropharynx normal, ears normal, nose normal, right lower wisdom tooth is darkened discoloration, grayish, trying to get out of the gum. Neck: Supple, nontender Chest and respiratory: Airway patent, no respiratory distress, no accessory muscle use Heart: Regular rate/rhythm Neurologic: Alert and oriented ?3, [employer] TECH[employer]ICIAN is normal as tested, no gross motor deficit Course Vital Signs Vital signs: Vital Signs Temperature 36.6 C 03/05/22 10:21 Pulse Rate 75 03/05/22 10:21 Respiratory Rate 14 03/05/22 10:21 Blood Pressure 133/71 03/05/22 10:21 Pulse Oximetry 100 03/05/22 10:21 Temperature 36.6 C 03/05/22 10:21 Pulse Rate 75 03/05/22 10:21 Respiratory Rate 14 03/05/22 10:21 Blood Pressure 133/71 03/05/22 10:21 Pulse Oximetry 100 03/05/22 10:21 Medical Decision Making Vital Signs Vital Signs: Vital Signs Temperature 36.6 C 03/05/22 10:21 Pulse Rate 75 03/05/22 10:21 Respiratory Rate 14 03/05/22 10:21 Blood Pressure 133/71 03/05/22 10:21 Pulse Oximetry 100 03/05/22 10:21 Temperature 36.6 C 03/05/22 10:21 Pulse Rate 75 03/05/22 10:
[2022-03-05 10:32] VITALS: RESP 14
== END 2022-03-05 10:48 | disposition home or self-care (01) ==
LOC: ANHED 10:42
PROVIDERS: Emergency Provider Emergency Medicine; PCP Nurse Practitioner Family
DX: K02.9 Dental caries, unspecified (principal); J00 Acute nasopharyngitis [common cold]; K22.70 Barrett's esophagus without dysplasia; K90.0 Celiac disease; F17.290 Nicotine dependence, other tobacco product, uncomplicated
CPT/HCPCS: 99283

== ENCOUNTER 2023-06-13 20:24 | Emergency (ER) | payer MEDICAID, SELFPAY ==
[2023-06-13 20:36] VITALS: BP 122/87; PULSE 98; RESP 18; TEMP 36.6; O2SAT 100
[2023-06-13 21:05] LABS: Basophils Absolute Auto 0.1 K/mm3 (0.0-0.1); Basophils Percent Auto 0.7 % (0.2-1.2); Eosinophils Absolute Auto 0.1 K/mm3 (0-0.3); Eosinophils Percent Auto 0.9 % (0-4.4); Hematocrit 36.8 % (42.0-52.0); Hemoglobin 12.6 g/dL (14.0-18.0); Immature Granulocyte Absolute 0.02 K/mm3 (0.00-0.031); Immature Granulocyte Percent A 0.2 % (0-0.5); Lymphocytes Absolute Auto 2.28 K/mm3 (0.9-3.2); Mean Corpuscular HGB Conc 34.2 g/dl (32-36); Mean Corpuscular Hemoglobin 29.6 pg (26-34); Mean Corpuscular Volume 86.6 fl (80-100); Mean Platelet Volume 9.8 fl (7.4-10.4); Monocytes Absolute Auto 0.5 K/mm3 (0.1-0.6); Monocytes Percent Auto 5.3 % (2.6-8.5); Neutrophils Absolute Auto 5.6 K/mm3 (1.3-6.7); Neutrophils Percent Auto 65.9 % (45.5-73.1); Platelet Count Result 193 k/mm3 (150-375); Red Blood Count 4.25 M/mm3 (4.6-6.20); Red Cell Distribution Width 11.9 % (11.5-14.5); White Blood Count 8.4 K/mm3 (4.5-10.0)
[2023-06-13 21:07] LABS: Appearance Urine Clear (Clear); Bacteria Urine None Seen /hpf; Bilirubin Urine Negative (Negative); Blood Urine Negative (Negative); Color Urine Yellow (Yellow); Glucose Urine UA Negative (Negative); Ketones Urine Negative (Negative); Leukocyte Esterase Ur Negative LEU/UL (Negative); Nitrate Urine Negative (Negative); Non Pathogenic Casts 0-2; Protein Urine Trace mg/dL (Negative); RBC Urine 0-2 /hpf (0-2); Specific Grav Ur 1.028 (1.001-1.035); Squamous Epithelial Cell Urine None Seen /hpf (Few); WBC Urine 0-5 /hpf (0-3); pH Urine 5.5 (5.0-9.0)
[2023-06-13 21:08] LABS: Add Urine Microscopic? YES
[2023-06-13 21:13] LABS: Alanine Aminotransferase 18 U/L (6-50); Albumin Level 4.7 g/dL (3.5-5.1); Alkaline Phosphatase 54 U/L (38-126); Anion Gap 8 mmol/L (8-16); Aspartate Amino Transferase 26 U/L (17-59); Bilirubin,Total 1.9 mg/dL (0.2-1.3); Blood Urea Nitrogen 16 mg/dL (9-20); Calcium 9.7 mg/dL (8.4-10.2); Carbon Dioxide 27 mmol/L (22-30); Chloride 103 mmol/L (98-107); Estimated CRCL calculation 113 ml/min; Estimated Glomerular Filt Rate > 60; Glucose 131 mg/dL (65-110); Lipase 452 U/L (23-300); Potassium 3.9 mmol/L (3.4-5.0); Sodium 138 mmol/L (137-145)
[2023-06-13 23:00] VITALS: BP 137/88; PULSE 70; RESP 16; O2SAT 100
--- NOTE | 2023-06-13 23:19 | PC.NURSE ---
Pt ambulatory with steady gait out of lobby doors. Pt mumbling under his breathe. No distress noted.
--- NOTE | 2023-06-13 23:21 | PC.NURSE ---
Per [facility] patient called out to nursing station and asked for his d/c paperwork. Patient then proceeded to walk out of ED.
--- NOTE | 2023-06-13 23:39 | ED.ABDPAIN ---
HPI - Abdominal Pain General Chief Complaint: Abdominal Pain Stated Complaint: abd pain Time Seen by Provider: 06/13/23 22:22 Source: patient Mode of arrival: ambulatory Limitations: no limitations History of Present Illness HPI narrative: This is a 28-year-old male with history of opioid use disorder who presents to the ED with chief complaint abdominal pain for the past 3 days. Reports he stopped using his Suboxone 4 days ago because he would like to get off of it. States that ?I know something is wrong with my body and I need to get it figured out. ? He reports that 3 years ago he was taking several case which is a subcu injection form of Suboxone. He feels that there are areas of swelling from the previous injection sites from 3 years ago. He is afraid these are causing deep space infection such as appendicitis. Denies any fevers, chills, nausea, vomiting, troubles bowel movements, problems urinating. Related Data Home Medications Medication Instructions Recorded Confirmed No Home Medications 06/13/23 Allergies Allergy/AdvReac Type Severity Reaction Status Date / Time No Known Allergies Allergy Verified 06/13/23 20:38 Review of Systems Review of Systems: All systems as dictated in HPI [facility] Past Medical History Medical History Anxiety Valera esophagus Celiac disease Drug abuse Longstanding history of drug abuse since his teenage years including THC, bath salts, methamphetamines, marijuana, and fentanyl. Surgical History Surgical History No history of previous surgery Family History Family History Grandparent Diabetes mellitus Mother Alcoholism Father Polysubstance (excluding opioids) dependence Social History Social History (Updated 06/01/22 @ 10:21 by JENA Harrison) Social History: The patient lives with his . He was recently evicted and currently staying at a hotel. His has a 9-year-old girl that is currently staying with the grandmother. He uses electronic cigarettes. Binge drinks 2x/month. Longstanding history of drug abuse including THC, heroin, methamphetamines, bath salts, and fentanyl. Full code. to make decisions for him if he is unable. Smoking packs per day: 2 Smoking cigarettes per day: 40.0 Years smoked: 15 Smoking pack-years: 30.00 Smoking status: Current every day smoker Tobacco type: e-cigarettes/vaping Second hand tobacco smoke exposure: Yes Alcohol intake: current Drinks per week: 12 Substance use: current Substance use type: heroin, amphetamines, opiates and methamphetamine Last use: 08/22/20 Lack of Transportation: No Lack of Food: Never True Current Housing: I Have Housing Concerned About Future Housing: No Difficulty Paying Gas/Electric Bills: No Difficulty Paying for Meds: No Currently Unemployed: No Education: High School Diploma/GED Difficulty w/ Childcare or Family Care: No Living arrangements: with family Occupation/Education: occupation Additional occupation/education comments: [employer] Gender identity (if verbalized by the patient): Male Spiritual care concerns: No Exam Narrative: GENERAL: Well-appearing, well-nourished, and in no acute distress. HEAD: Normocephalic, atraumatic. EYES: PERRLA and EOMI. ENT: Nares clear, no rhinorrhea or epistaxis. Mucous membranes moist. Oropharynx without tonsillar hypertrophy exudate or other lesions. NECK: Supple. No adenopathy or masses. CHEST: No respiratory distress. Clear to auscultation. No wheezes rales or rhonchi HEART: Regular rate and rhythm. No murmur heard. Normal peripheral pulses. ABDOMEN: Soft, nontender, nondistended, normal active bowel sounds. MSK: Normal range of motion. No edema. SKIN: Warm, dry, no rash. NEURO: Alert and oriented x3. No focal defi
== END 2023-06-13 23:23 | disposition left against medical advice (07) ==
PROVIDERS: Emergency Medicine; Emergency Provider Physician Assistant
DX: R10.9 Unspecified abdominal pain (principal); Z72.0 Tobacco use; F41.9 Anxiety disorder, unspecified
CPT/HCPCS: 36415; 80053; 83690; 85025; 99283